=== PATIENT | female | born 1985 | race Caucasian/White ===

== ENCOUNTER 2017-11-19 07:48 | Inpatient (IN) ==
[2017-11-19] MEDS ORDERED: Bisacodyl 10 MG Supp RECTAL PRN (16:28)
--- NOTE | 2017-11-19 16:39 | MR ---
EXAM DATE: 11/19/2017 4:31 PM EDT AGE/SEX: 31 years / Female INDICATIONS: . Back pain, abnormal CT. CLINICAL DATA: This is the patient's initial encounter. Patient reports that signs and symptoms have been present for 4 - 6 days and indicates a pain score of 8/10. MEDICAL/SURGICAL HISTORY: None. Cholecystectomy. COMPARISON: No prior exams available for comparison. TECHNIQUE: Multiplanar, multisequence MRI of the lumbar spine was performed without contrast. Patie nt was scanned in a sitting position; neutral, flexion, and extension scans were performed in the sa gittal plane. FINDINGS: Sagittal images demonstrate normal vertebral body alignment and curvature. No focal areas of marrow r eplacement are identified. The conus terminates normally. Axial images were performed from T12-L1 thr ough L5-S1.There is loss of disc height and marginal osteophyte formation at L5-S1. T12-L1: No significant abnormalities identified. L1-L2: No significant abnormalities identified. L2-L3: No significant abnormalities identified. L3-L4: No significant abnormalities identified. L4-L5: No significant abnormalities identified. L5-S1: There is mild annular bulge of the disc. There is no significant spinal canal stenosis. The n eural foramina are clear bilaterally. CONCLUSION: Degenerative disc disease L5-S1. No evidence of disc protrusion or spinal canal stenosis. Electronically signed by: Mark Young MD 11/19/2017 4:38 PM EDT
--- NOTE | 2017-11-19 16:44 | P.HP ---
History of Present Illness Service: [facility] hospitalist PO Primary Care Physician: No Primary Care Physician Chief Complaint: severe back pain ,fever History of Present Illness: 31-year-old white female who presented to [facility] for evaluation of low back pain and fever. Patient states that she has had low back pain for approximately one years time but in the last 2 days it has become progressively worse about an 8 out of 10 aggravated by moving, she is unable to get out of bed because of the pain. Patient for the last 2 days also has been running a temperature T-max approximately 102no associated cough sore throat no urine symptoms no nausea no vomiting. Patient did take some Tylenol or ibuprofen with poor results. Patient states that her back pain radiates to her sacral area but not down her legs there is no tingling or numbness no motor or sensory loss with good bladder control and bowel control. In the emergency room and [place], patient had lab work which showed a slight elevation in WBC count rest of lab was unremarkable blood cultures were ordered and sent as well as a urine culture patient had a CAT scan of her lumbar spine which showed severe degenerative disc disease with neuroforaminal stenosis. The ER was concerned about a possible epidural abscess and she was sent to [facility] to undergo an MRI and further evaluation. - Diagnosis (1) Lumbar back pain (2) Fever Inpatient Certification: I certify that the inpatient services were ordered in accordance with Medicare regulations governing the order. This includes certification that hospital inpatient services are reasonable and necessary and in the case of services not specified as inpatient-only under 42 CFR 419.22(n), that they are appropriately provided as inpatient services in accordance to with the 2-midnight benchmark under 43 CFR 412.3(e) Review of Systems All other systems reviewed negative except as stated in HPI PMFSH - History History Provided By: Patient - Medical History Medical History: Medical History (Last Reviewed 11/19/17 @ 16:26 by Colt Mansfield MD) Migraine - Surgical History Surgical History: Surgical History (Last Reviewed 11/19/17 @ 16:26 by Colt Mansfield MD) History of cholecystectomy History of dental surgery Hx of eye surgery - Tobacco History Second Hand Smoke Exposure: No Tobacco Use In Past 30 Days: Yes Smoking Status: Current every day smoker Tobacco Type: Cigarettes - Alcohol History How Often Do You Have a Drink Containing Alcohol: Never - Substance Use History Substance History: No History of Abuse Medications and Allergies Active Medications: Active Medications Al Hydroxide/Mg Hydroxide (Milk Of Magnesia Liq) 30 ml PO Q12H PRN PRN Reason: Mild Constipation Bisacodyl (Dulcolax Supp) 10 mg RECTAL DAILY PRN PRN Reason: SEVERE CONSITIPATION Hydromorphone HCl (Dilaudid Pf Inj) 0.5 mg IV.PUSH Q4H PRN PRN Reason: PAIN SCALE 6 TO 10 Lactulose (Lactulose Liq) 30 ml PO DAILY PRN PRN Reason: SEVERE CONSITIPATION Ondansetron HCl (Zofran Inj) 4 mg IV.PUSH Q6H PRN PRN Reason: NAUSEA OR VOMITING Senna/Docusate Sodium (Yaneli-Colace) 1 tab PO BID BALBIR Sennosides (Senokot) 17.2 mg PO Q12H PRN PRN Reason: Moderate Constipation Sodium Chloride (Ns Flush) 2 ml IV.FLUSH PRN PRN PRN Reason: FLUSH AFTER USING IV ACCESS Temazepam (Restoril) 15 mg PO HS PRN PRN Reason: INSOMNIA Allergies Allergy/AdvReac Type Severity Reaction Status Date / Time ketorolac [From Toradol] Allergy Shortness Verified 11/19/17 08:19 of Breath meperidine [From Demerol] Allergy Headache Verified 11/19/17 08:19 Home Medications Medication Instructions Recorded Confirmed Type No Known Home Medications 11/19/17 11/19/17 History Exam Vital signs: Vital Signs 11/19/17 14:45 Temperature 97.3 F L Blood Pressure 118/71 Pulse Oximetry 96 GENERAL: SKIN: Warm and dry. HEAD: Atraumatic. Normocephalic. EYES: Pupils equal and round. No scleral icterus. No injection or drainage. ENT: No nasal bleeding or discharge. Mucous membranes pink and moist. NECK: Trachea midline. No JVD. CARDIOVASCULAR: Regular rate and rhythm. RESPIRATORY: No accessory muscle use. Clear to auscultation. Breath sounds equal bilaterally. GASTROINTESTINAL: Abdomen soft, non-tender, nondistended. Hepatic and splenic margins not palpable. MUSCULOSKELETAL: Extremities without clubbing, cyanosis, or edema. No obvious deformities. NEUROLOGICAL: Awake and alert. No obvious cranial nerve deficits. Motor grossly within normal limits. Five out of 5 muscle strength in the arms and legs. Normal speech. Patient with severe pain on moving low back unable to roll over without pain. PSYCHIATRIC: Appropriate mood and affect; insight and judgment normal. Caprini VTE Risk Assessment Caprini VTE Risk Assessment: No/Low Risk (score <= 1) Caprini Risk Assessment Model: Point Value = 1 Point Value = 2 Point Value = 3 Point Value = 5 Age 41-60 Minor surgery BMI > 25 kg/m2 Swollen legs Varicose veins or History of unexplained or recurrent spontaneous Oral contraceptives or hormone replacement Sepsis (< 1 month) Serious lung disease, including pneumonia (< 1 month) Abnormal pulmonary function Acute myocardial infarction Congestive heart failure (< 1 month) History of inflammatory bowel disease Medical patient at bed rest Age 61-74 Arthroscopic surgery Major open surgery (> 45 min) Laparoscopic surgery (> 45 min) Malignancy Confined to bed (> 72 hours) Immobilizing plaster cast Central venous access Age >= 75 History of VTE Family history of VTE Factor V Leiden Prothrombin [id number] Lupus anticoagulant Anticardiolipin antibodies Elevated serum homocysteine Heparin-induced thrombocytopenia Other congenital or acquired thrombophilia Stroke (< 1 month) Elective arthroplasty Hip, pelvis, or leg fracture Acute spinal cord injury (< 1 month) Prophylaxis Regimen: Total Risk Factor Score Risk Level Prophylaxis Regimen 0-1 Low Early ambulation 2 Moderate Order ONE of the following: *Sequential Compression Device (SCD) *Heparin 5000 units SQ BID 3-4 Higher Order ONE of the following medications: *Heparin 5000 units SQ TID *Enoxaparin/Lovenox 40 mg SQ daily (WT < 150 kg, CrCl > 30 mL/min) *Enoxaparin/Lovenox 30 mg SQ daily (WT < 150 kg, CrCl > 10-29 mL/min) *Enoxaparin/Lovenox 30 mg SQ BID (WT < 150 kg, CrCl > 30 mL/min) AND/OR *Sequential Compression Device (SCD) 5 or more Highest Order ONE of the following medications: *Heparin 5000 units SQ TID (Preferred with Epidurals) *Enoxaparin/Lovenox 40 mg SQ daily (WT < 150 kg, CrCl > 30 mL/min) *Enoxaparin/Lovenox 30 mg SQ daily (WT < 150 kg, CrCl > 10-29 mL/min) *Enoxaparin/Lovenox 30 mg SQ BID (WT < 150 kg, CrCl > 30 mL/min) AND *Sequential Compression Device (SCD) Assessment and Plan - Assessment (1) Lumbar back pain Code(s): M54.5 - Low back pain Status: Acute Plan: Will get MRI lumbar and sacrum for further evaluation may need to consult neurosurgery continue pain medication hydromorph and zofran will add flexeril (2) Fever Code(s): R50.9 - Fever, unspecified Status: Acute Plan: blood and urine cultures ordered from [place] will follow cbc use tylenol for now - Plan further plan as case develops Code Status: full Discussed Condition With: patient (2) Fever Qualifiers: Fever type: unspecified Qualified Code(s): R50.9 - Fever, unspecified
[2017-11-19] MEDS ORDERED: Acetaminophen 325 MG Tablet PO PRN (17:04)
[2017-11-19] MEDS: HYDROmorphone PF Inj 1 MG/ML Ampul IV.PUSH PRN ×2 (17:14→21:26)
--- NOTE | 2017-11-19 17:38 | MR ---
EXAM DATE: 11/19/2017 4:50 PM EDT AGE/SEX: 31 years / Female INDICATIONS: Pain. Low back pain with left radiculopathy. CLINICAL DATA: This is the patient's initial encounter. Patient reports that signs and symptoms have been present for > 1 year and indicates a pain score of 5/10. MEDICAL/SURGICAL HISTORY: . Cholecystectomy. COMPARISON: No prior exams available for comparison. TECHNIQUE: Multiplanar multisequence MRI examination of the sacrum/coccyx was performed. FINDINGS: Bone/Cartilage: Bone marrow signal is homogeneous. Articular cartilage signal is within normal limit s. Muscles/Tendons: All of the visualized muscles and tendons are intact. Miscellaneous: Neurovascular structures are within normal limits. CONCLUSION: Negative sacral MRI examination. Electronically signed by: Skip Del Valle MD 11/19/2017 5:37 PM EDT
[2017-11-19] MEDS: Senna/Docusate Sodium 8.6/50 MG Tablet PO SCH (21:20)
[2017-11-19] MEDS: LORazepam 1 MG Tablet PO PRN (23:08)
--- NOTE | 2017-11-19 23:08 | P.PNADD ---
Addendum to Inpatient Note Reason for Addendum: Additional Documentation Additional information: Patient on exam has scratch flynn on arms and some wounds to arm ,patient states from her stratching when she gets nervous and from popping blisters , also told me she was in hospital in past for ?sepsis and ?meningitis but did not really know what happened. MRI of lumbar showed djd disc degeneration no significant stenosis and patient continues to complain of pain have added tramdol and ativan,may need neurosurgical consult.
[2017-11-20] MEDS: HYDROmorphone PF Inj 1 MG/ML Ampul IV.PUSH PRN ×6 (01:26→23:13)
[2017-11-20 06:58] LABS: Baso % (Auto) 0.1 % (0.0-2.0); Eos % (Auto) 0.2 % (0.0-4.0); Hematocrit 35.2 % (35.0-46.0); Hemoglobin 11.7 gm/dL (11.6-15.3); Lymph # (Auto) 2.2 th/mm3 (1.0-4.8); Lymph % (Auto) 17.7 % (9.0-44.0); Mean Corpuscular HGB Conc 33.3 % (32.0-36.0); Mean Corpuscular Hemoglobin 26.2 pg (27.0-34.0); Mean Corpuscular Volume 78.7 fL (80.0-100.0); Mean Platelet Volume 7.7 fL (7.0-11.0); Mono # (Auto) 0.9 th/mm3 (0.0-0.9); Mono % (Auto) 7.1 % (0.0-8.0); Neut # (Auto) 9.2 th/mm3 (1.8-7.7); Neut % (Auto) 74.9 % (16.0-70.0); Platelet Count 268 th/mm3 (150-450); Red Blood Count 4.47 mil/mm3 (4.00-5.30); Red Cell Distribution Width 14.5 % (11.6-17.2); White Blood Count 12.3 th/mm3 (4.0-11.0)
[2017-11-20 07:06] LABS: Chloride 104 meq/L (98-107); Potassium 4.1 meq/L (3.5-5.1); Sodium 140 meq/L (136-145)
[2017-11-20 07:09] LABS: Anion Gap 8 meq/L (5-15); Blood Urea Nitrogen 10 mg/dL (7-18); Calcium 8.9 mg/dL (8.5-10.1); Carbon Dioxide 27.6 meq/L (21.0-32.0); Glucose,Random 108 mg/dL (74-106)
[2017-11-20 07:13] LABS: Glomerular Filtration Rate Greater Than 89 mL/min (>89)
[2017-11-20] MEDS: LORazepam 1 MG Tablet PO PRN ×3 (07:47→23:13)
[2017-11-20] MEDS: Senna/Docusate Sodium 8.6/50 MG Tablet PO SCH ×2 (08:03→21:42)
--- NOTE | 2017-11-20 12:29 | P.PN ---
Subjective Interval history: Patient admitted with intractable back pain with inability to turn over without pain MRI lumbar and sacrum djd no significant stenosis will ask for neurosurgical evaluation and interventional radiology to see as well. Patient has had fever with slight elevation WBC count and has gram positive in pairs on blood culture will recheck and repeat u/c/s and ask ID to evaluate does have history of sepsis in past ,several healed scars arms ,patient states from her stratching self from nervous. Labs to recheck in am will consult ID Physical Exam Vital signs: Vital Signs 11/19/17 14:45 11/19/17 20:00 11/20/17 00:00 Temperature 97.3 F L 98.3 F 97.1 F L Pulse Rate 72 62 Respiratory Rate 20 20 Blood Pressure 118/71 105/59 L 121/65 Pulse Oximetry 96 97 96 11/20/17 07:47 11/20/17 07:52 11/20/17 11:20 Temperature 98 F 98.1 F Pulse Rate 57 L 99 H Respiratory Rate 16 20 20 Blood Pressure 109/68 107/60 Pulse Oximetry 98 97 Intake & Output 11/19/17 11/20/17 11/20/17 18:59 06:59 18:59 Intake Total 401 / 401 720 / 720 Balance 401 / 401 720 / 720 Weight 97.2 kg 97 kg Intake: Oral 401 / 401 720 / 720 Other: # Voids 1 3 Weight On Admission 97.2 kg Narrative: GENERAL: SKIN: Warm and dry. HEAD: Atraumatic. Normocephalic. EYES: Pupils equal and round. No scleral icterus. No injection or drainage. ENT: No nasal bleeding or discharge. Mucous membranes pink and moist. NECK: Trachea midline. No JVD. CARDIOVASCULAR: Regular rate and rhythm. RESPIRATORY: No accessory muscle use. Clear to auscultation. Breath sounds equal bilaterally. GASTROINTESTINAL: Abdomen soft, non-tender, nondistended. Hepatic and splenic margins not palpable. MUSCULOSKELETAL: Extremities without clubbing, cyanosis, or edema. No obvious deformities. Severe pain on any movement lumbar NEUROLOGICAL: Awake and alert. No obvious cranial nerve deficits. Motor grossly within normal limits. Five out of 5 muscle strength in the arms and legs. Normal speech. PSYCHIATRIC: Appropriate mood and affect; insight and judgment normal. Results - Labs CBC & Chem 7: 11/20/17 06:21 11/20/17 06:21 Laboratory Results - last 24 hr 11/20/17 11/20/17 06:21 06:21 CBC w Diff Auto diff final WBC 12.3 H RBC 4.47 Hgb 11.7 Hct 35.2 MCV 78.7 L MCH 26.2 L MCHC 33.3 RDW 14.5 Plt Count 268 MPV 7.7 Neut % (Auto) 74.9 H Lymph % (Auto) 17.7 [place] % (Auto) 7.1 Eos % (Auto) 0.2 Baso % (Auto) 0.1 Neut # (Auto) 9.2 H Lymph # (Auto) 2.2 [place] # (Auto) 0.9 Eos # (Auto) 0.0 Baso # (Auto) 0.0 WBC Differential . Differential Comment . Sodium 140 Potassium 4.1 Chloride 104 Carbon Dioxide 27.6 Anion Gap 8 BUN 10 Creatinine 0.51 Estimated GFR Greater than 89 Random Glucose 108 H Calcium 8.9 - Imaging Impressions Sacrum/Coccyx MRI 11/19/17 00:00 CONCLUSION: Negative sacral MRI examination. Lumbar Spine MRI 11/19/17 15:07 CONCLUSION: Degenerative disc disease L5-S1. No evidence of disc protrusion or spinal canal stenosis. Assessment and Plan - Assessment (1) Lumbar back pain Code(s): M54.5 - Low back pain Status: Acute Plan: MRI lumbar and sacrum djd no significant stenosis consult neurosurgery and interventional radiology continue pain medication hydromorph and zofran will add flexeril and added ultram (2) Fever Code(s): R50.9 - Fever, unspecified Status: Acute Plan: blood culture growing gram positive in chains ID pending will techeck blood c/s and urine was contaminated will recollect has WBC about same ,patient did state has hx of sepsis in past will get ID consult,so far no temp over 18 hours - Plan further plan as case develops (2) Fever Qualifiers: Fever type: unspecified Qualified Code(s): R50.9 - Fever, unspecified
--- NOTE | 2017-11-20 12:34 | P.PNADD ---
Addendum to Inpatient Note Reason for Addendum: Additional Documentation (will get one set blood culture start empiric zoysn)
[2017-11-20] MEDS ORDERED: Piperacil/Tazo 3.375 GM Premix 50 ML IV.SIG SCH (14:00)
[2017-11-20] MEDS ORDERED: Vancomycin Inj 1 GM/200 ML PIGGYBACK IV.SIG SCH (17:00)
--- NOTE | 2017-11-20 19:11 | P.CONID ---
History of Present Illness Service: Infectious Disease Consult date: 11/20/17 Requesting Physician: Colt Mansfield Reason for Consult: Bacteremia Primary Care Provider: No Primary Care Physician Chief Complaint: severe back pain ,fever History of Present Illness: patient says she had chronic back pain and h/o anxiety when she cuts herself says she had fever with chills a couple of days and then her back pain got lot worse so she came to the ER and was transferred to [facility] to get a MRI. MRI Lumbar spine and sacral area was normal. Patient has positive blood cultures and so the consult. She denies drug use but does say that in 2014 too she had bacteremia due to cutting herself and had to be treated with IV antibiotics for 12 weeks. She at that time was in [place]. Review of Systems Constitutional: Reports body ache(s), Reports chills, Reports fatigue, Reports fever(s), Reports malaise, Reports night sweats, Denies headache(s) Eyes: Denies blind spots, Denies blurry vision, Denies bulging eyes Ears, Nose, Mouth, and Throat: Reports mouth pain, Denies abnormal hearing, Denies bleeding gums, Denies bad breath, Denies change in voice, Denies nasal obstruction, Denies nasal trauma, Denies sinus pain Cardiovascular: Denies chest pain, Denies chest pain at rest, Denies chest pain with activity, Denies fainting, Denies fast heart rate, Denies leg swelling, Denies lightheadedness Respiratory: Denies change in phlegm color, Denies chest congestion, Denies cough, Denies coughing up blood, Denies shortness of breath with activity Gastrointestinal: Denies abdominal pain, Denies bloating, Denies change in bowel habits, Denies change in stools, Denies difficulty swallowing, Denies heartburn Genitourinary: Denies blood in urine, Denies difficulty urinating, Denies pelvic pain Musculoskeletal: Reports back pain, Reports body aches, Denies abnormal walking , Denies muscle cramps, Denies muscle weakness Skin/Breast: Reports other (Multiple skin scratch flynn & lesions on both forearms from cutting herself) Neurologic: Denies loss of vision, Denies memory loss, Denies tingling/numbness/ burning sensations Psychiatric: Reports anxiety, Reports behavioral changes, Reports depression, Reports panic attacks, Denies memory loss Endocrine: Denies cold intolerance, Denies excessive sweating, Denies flushing Hematologic/Lymphatic: Denies easy bleeding, Denies easy bruising Allergic/Immunologic: Denies hives PMFSH - History History Provided By: Patient - Medical History Medical History: Medical History (Last Updated 11/20/17 @ 19:02 by Felicia Najera MD) Bacteremia Migraine - Surgical History Surgical History: Surgical History (Last Reviewed 11/19/17 @ 16:26 by Colt Mansfield MD) History of cholecystectomy History of dental surgery Hx of eye surgery - Tobacco History Second Hand Smoke Exposure: No Tobacco Use In Past 30 Days: Yes Smoking Status: Current every day smoker Tobacco Type: Cigarettes - Alcohol History How Often Do You Have a Drink Containing Alcohol: Never - Substance Use History Substance History: No History of Abuse - Travel History History of Recent Travel: No Medications and Allergies Active Medications: Active Medications Acetaminophen (Tylenol) 650 mg PO Q6H PRN PRN Reason: FEVER Al Hydroxide/Mg Hydroxide (Milk Of Magnesia Liq) 30 ml PO Q12H PRN PRN Reason: Mild Constipation Bisacodyl (Dulcolax Supp) 10 mg RECTAL DAILY PRN PRN Reason: SEVERE CONSITIPATION Cyclobenzaprine HCl (Flexeril) 10 mg PO Q8H PRN PRN Reason: PAIN SCALE 6 TO 10 Last Admin: 11/20/17 18:00 Dose: 10 mg Hydromorphone HCl (Dilaudid Pf Inj) 0.5 mg IV.PUSH Q4H PRN PRN Reason: PAIN 6-10 Last Admin: 11/20/17 15:38 Dose: 0.5 mg Vancomycin/Sodium Chloride (Vancomycin Inj) 1 gm in 200 mls @ 200 mls/hr IV.SIG Q12H BALBIR Last Admin: 11/20/17 17:53 Dose: 200 mls/hr Ampicillin Sodium/Sulbactam (Sodium 3 gm/ Sodium Chloride) 100 mls @ 200 mls/ hr IV.SIG Q6H BALBIR Lactulose (Lactulose Liq) 30 ml PO DAILY PRN PRN Reason: SEVERE CONSITIPATION Lorazepam (Ativan) 1 mg PO Q8H PRN PRN Reason: ANXIETY Last Admin: 11/20/17 15:37 Dose: 1 mg Ondansetron HCl (Zofran Inj) 4 mg IV.PUSH Q6H PRN PRN Reason: NAUSEA OR VOMITING Last Admin: 11/19/17 17:15 Dose: 4 mg Senna/Docusate Sodium (Yaneli-Colace) 1 tab PO BID BALBIR Last Admin: 11/20/17 08:03 Dose: 1 tab Sennosides (Senokot) 17.2 mg PO Q12H PRN PRN Reason: Moderate Constipation Sodium Chloride (Ns Flush) 2 ml IV.FLUSH PRN PRN PRN Reason: FLUSH AFTER USING IV ACCESS Temazepam (Restoril) 15 mg PO HS PRN PRN Reason: INSOMNIA Tramadol HCl (Ultram) 50 mg PO QID PRN PRN Reason: BREAKTHROUGH PAIN Last Admin: 11/20/17 13:20 Dose: 50 mg Allergies Allergy/AdvReac Type Severity Reaction Status Date / Time ketorolac [From Toradol] Allergy Shortness Verified 11/19/17 08:19 of Breath meperidine [From Demerol] Allergy Headache Verified 11/19/17 08:19 Home Medications Medication Instructions Recorded Confirmed Type No Known Home Medications 11/19/17 11/19/17 History Exam Vital signs: Vital Signs 11/19/17 20:00 11/20/17 00:00 11/20/17 07:47 Temperature 98.3 F 97.1 F L Pulse Rate 72 62 Respiratory Rate 20 20 16 Blood Pressure 105/59 L 121/65 Pulse Oximetry 97 96 11/20/17 07:52 11/20/17 11:20 11/20/17 11:57 Temperature 98 F 98.1 F Pulse Rate 57 L 99 H Respiratory Rate 20 20 16 Blood Pressure 109/68 107/60 Pulse Oximetry 98 97 11/20/17 12:44 11/20/17 16:08 11/20/17 16:09 Temperature 98 F Pulse Rate 84 Respiratory Rate 16 16 20 Blood Pressure 110/70 Pulse Oximetry 97 Intake & Output 11/19/17 11/20/17 11/20/17 18:59 06:59 18:59 Intake Total 401 / 401 720 / 720 920 / 920 Balance 401 / 401 720 / 720 920 / 920 Weight 97.2 kg 97 kg Intake: IV 0 / 0 Zosyn 3.375 GM Premix 50 ML @ 0 / 0 100 mls/hr IV.SIG Q6H BALBIR Rx#: [id number] Oral 401 / 401 720 / 720 920 / 920 Other: # Voids 1 3 4 Date of Last Bowel Movement 11/20/17 Weight On Admission 97.2 kg - Constitutional moderate distress Comments: Crying and very anxious - Routine HEENT Exam Head: Present: normocephalic, atraumatic Eye: Present: EOMI. Absent: periorbital swelling, nystagmus ENT: Present: mucous membranes moist, nares patent - Routine Neck Exam Present: supple, full ROM. Absent: carotid bruit, thyromegaly - Routine Chest/Breast/Axilla Exam Chest wall: Absent: tenderness, mass - Routine Respiratory Exam Present: CTA bilaterally. Absent: accessory muscle use, rhonchi, wheezes - Routine Cardiovascular Exam Present: RRR, murmur, tachycardia - Routine Abdominal Exam Present: soft, normoactive bowel sounds. Absent: tenderness, distended, rigid, organomegaly - Routine Extremities Exam Present: pulses intact. Absent: clubbing, edema - Routine Skin Exam Present: scars, wounds Comments: On both forearms multiple scars and wounds to suggest "cutting" - Routine Neurological Exam Present: alert, oriented X3, moving all extremities, normal speech. Absent: tremors - Routine Psychiatric Exam Present: anxious, agitated. Absent: good insight, good judgment Results - Labs CBC & Chem 7: 11/20/17 06:21 11/20/17 06:21 Labs: Laboratory Results - last 24 hr 11/20/17 11/20/17 06:21 06:21 CBC w Diff Auto diff final WBC 12.3 H RBC 4.47 Hgb 11.7 Hct 35.2 MCV 78.7 L MCH 26.2 L MCHC 33.3 RDW 14.5 Plt Count 268 MPV 7.7 Neut % (Auto) 74.9 H Lymph % (Auto) 17.7 [place] % (Auto) 7.1 Eos % (Auto) 0.2 Baso % (Auto) 0.1 Neut # (Auto) 9.2 H Lymph # (Auto) 2.2 [place] # (Auto) 0.9 Eos # (Auto) 0.0 Baso # (Auto) 0.0 WBC Differential . Differential Comment . Sodium 140 Potassium 4.1 Chloride 104 Carbon Dioxide 27.6 Anion Gap 8 BUN 10 Creatinine 0.51 Estimated GFR Greater than 89 Random Glucose 108 H Calcium 8.9 Assessment and Plan (1) Gram positive septicemia Status: Acute Code(s): A41.89 - Other specified sepsis (2) Lumbar back pain Status: Acute Code(s): M54.5 - Low back pain (3) Fever Status: Acute Code(s): R50.9 - Fever, unspecified - Plan 1. Patient does have a high grade Gram positive bacteremia 2. Add Vancomycin 1 g q 12hrs - Consult pharmacy 3. Stop Zosyn 4. Start Unasyn 3 g IV q 6hrs 5. Check Echocardiogram - if Echo negative for Endocarditis- will need JODI. 6. Needs Psychiatric evaluation - with h/o cutting herself. 7. Neurosurgery evaluation (3) Fever Qualifiers: Fever type: due to other condition Qualified Code(s): R50.81 - Fever presenting with conditions classified elsewhere
[2017-11-20] MEDS ORDERED: Vancomycin Consult Pharmacy 1 EACH OTHER SCH (19:13)
[2017-11-20] MEDS: Ampicillin/Sulbactam Inj 3 GM in Sodium Chloride 0.9% Inj 100 ML IV.SIG SCH (21:41)
[2017-11-21] MEDS: Vancomycin Inj 1,250 MG in Sodium Chlor 0.9% Inj 250 ML IV.SIG SCH ×3 (00:39→18:03)
[2017-11-21] MEDS: Temazepam 15 MG Capsule PO PRN (01:59)
[2017-11-21] MEDS: Ampicillin/Sulbactam Inj 3 GM in Sodium Chloride 0.9% Inj 100 ML IV.SIG SCH ×4 (03:14→22:08)
[2017-11-21] MEDS: HYDROmorphone PF Inj 1 MG/ML Ampul IV.PUSH PRN ×3 (03:15→12:31)
[2017-11-21 06:22] LABS: Baso % (Auto) 0.1 % (0.0-2.0); Eos % (Auto) 0.2 % (0.0-4.0); Hematocrit 34.3 % (35.0-46.0); Hemoglobin 11.4 gm/dL (11.6-15.3); Lymph # (Auto) 3.1 th/mm3 (1.0-4.8); Lymph % (Auto) 24.5 % (9.0-44.0); Mean Corpuscular HGB Conc 33.1 % (32.0-36.0); Mean Corpuscular Hemoglobin 25.8 pg (27.0-34.0); Mean Corpuscular Volume 78.1 fL (80.0-100.0); Mean Platelet Volume 7.4 fL (7.0-11.0); Mono # (Auto) 1.1 th/mm3 (0.0-0.9); Mono % (Auto) 8.6 % (0.0-8.0); Neut # (Auto) 8.4 th/mm3 (1.8-7.7); Neut % (Auto) 66.6 % (16.0-70.0); Platelet Count 317 th/mm3 (150-450); Red Blood Count 4.39 mil/mm3 (4.00-5.30); Red Cell Distribution Width 14.6 % (11.6-17.2); White Blood Count 12.6 th/mm3 (4.0-11.0)
[2017-11-21 06:44] LABS: Albumin 2.5 g/dL (3.4-5.0); Anion Gap 10 meq/L (5-15); Blood Urea Nitrogen 8 mg/dL (7-18); Calcium 8.3 mg/dL (8.5-10.1); Carbon Dioxide 26.5 meq/L (21.0-32.0); Chloride 102 meq/L (98-107); Sodium 138 meq/L (136-145)
[2017-11-21 06:46] LABS: Alanine Aminotransferase 26 U/L (10-53); Aspartate Aminotransferase 10 U/L (15-37); Glomerular Filtration Rate Greater Than 89 mL/min (>89); Glucose,Random 90 mg/dL (74-106)
[2017-11-21 06:52] LABS: Alkaline Phosphatase 81 U/L (45-117); Total Protein 7.7 g/dL (6.4-8.2)
[2017-11-21 06:56] LABS: Potassium 2.9 meq/L (3.5-5.1)
[2017-11-21] MEDS ORDERED: Potassium Chloride 25 MEQ Effervescent Tablet PO ONE (08:00)
[2017-11-21] MEDS: Senna/Docusate Sodium 8.6/50 MG Tablet PO SCH ×2 (09:07→22:09)
[2017-11-21] MEDS: LORazepam 1 MG Tablet PO PRN ×2 (09:15→16:11)
--- NOTE | 2017-11-21 10:56 | P.PN ---
Subjective Interval history: appreciate Dr. Brandon input ,concern is her scratches which she now tells us are from self inflicting,to be none of them look to be draining but does have gm positive cocci growing in blood cultures and on checking history she had sepsis required 6 weeks of IV vancomycin in [place] in past ,2d echo was ordered will need JODI and also psychiatry consult ,bone scan in process ,potassium was low will give IV,patient with continued severe back pain neurosurgery is on consult as well and i did suggest interventional radiology see for possible injection for pain relief but with the infection would hold on that for now . I will start process to transfer to [facility]. Physical Exam Vital signs: Vital Signs 11/20/17 11:20 11/20/17 11:57 11/20/17 12:44 Temperature 98.1 F Pulse Rate 99 H Respiratory Rate 20 16 16 Blood Pressure 107/60 Pulse Oximetry 97 11/20/17 16:08 11/20/17 16:09 11/20/17 20:00 Temperature 98 F 98.0 F Pulse Rate 84 71 Respiratory Rate 16 20 18 Blood Pressure 110/70 132/62 Pulse Oximetry 97 94 L 11/21/17 00:00 11/21/17 08:00 Temperature 98.2 F 99.8 F H Pulse Rate 86 65 Respiratory Rate 20 16 Blood Pressure 116/61 122/76 Pulse Oximetry 96 98 Intake & Output 11/20/17 11/21/17 11/21/17 18:59 06:59 18:59 Intake Total 1120 / 1120 200.5 / 200.5 312 / 312 Balance 1120 / 1120 200.5 / 200.5 312 / 312 Intake: IV 200 / 200 200.5 / 200.5 312 / 312 Unasyn Inj 3 GM In NS Inj 100 200 / 200 ML @ 200 mls/hr IV.SIG Q6H [facility] Rx#:[id number] Zosyn 3.375 GM Premix 50 ML @ 0 / 0 100 mls/hr IV.SIG Q6H [facility] Rx#: [id number] Vancomycin Inj 1 gm In 200 ml @ 200 / 200 200 mls/hr IV.SIG Q12H [facility] Rx# :[id number] Vancomycin Inj 1,250 MG In NS 0.5 / 0.5 262 / 262 Inj 250 ML @ 250 mls/hr IV.SIG Q8H [facility] Rx#:[id number] Oral 920 / 920 Other: # Voids 4 Date of Last Bowel Movement 11/20/17 Narrative: GENERAL: SKIN: Warm and dry. multiple areas of cut wounds arms with scabs no active drainage appear healing HEAD: Normocephalic. EYES: No scleral icterus. No injection or drainage. NECK: Supple, trachea midline. No JVD or lymphadenopathy. CARDIOVASCULAR: Regular rate and rhythm without murmurs, gallops, or rubs. RESPIRATORY: Breath sounds equal bilaterally. No accessory muscle use. GASTROINTESTINAL: Abdomen soft, non-tender, nondistended. MUSCULOSKELETAL: No cyanosis, or edema. BACK: Severe back pain with any movement Results - Labs CBC & Chem 7: 11/21/17 05:20 11/21/17 05:20 Laboratory Results - last 24 hr 11/21/17 11/21/17 05:20 05:20 CBC w Diff Auto diff final WBC 12.6 H RBC 4.39 Hgb 11.4 L Hct 34.3 L MCV 78.1 L MCH 25.8 L MCHC 33.1 RDW 14.6 Plt Count 317 MPV 7.4 Neut % (Auto) 66.6 Lymph % (Auto) 24.5 [place] % (Auto) 8.6 H Eos % (Auto) 0.2 Baso % (Auto) 0.1 Neut # (Auto) 8.4 H Lymph # (Auto) 3.1 [place] # (Auto) 1.1 H Eos # (Auto) 0.0 Baso # (Auto) 0.0 WBC Differential . Differential Comment . Sodium 138 Potassium 2.9 L* D Chloride 102 Carbon Dioxide 26.5 Anion Gap 10 BUN 8 Creatinine 0.54 Estimated GFR Greater than 89 Random Glucose 90 Calcium 8.3 L Total Bilirubin 0.5 AST 10 L ALT 26 Alkaline Phosphatase 81 Total Protein 7.7 Albumin 2.5 L Microbiology 11/20/17 12:53 Blood - Other Anaerobic Blood Culture - Preliminary gram positive cocci Assessment and Plan - Assessment (1) Lumbar back pain Code(s): M54.5 - Low back pain Status: Acute Plan: MRI lumbar and sacrum djd no significant stenosis consult neurosurgery and interventional radiology continue pain medication hydromorph and zofran will add flexeril and added ultram for now will hold interventional as under work up for sepsis,r/o endocarditis (2) Fever Code(s): R50.9 - Fever, unspecified Status: Acute Plan: blood culture growing gram positive in chains ID pending will techeck blood c/s and urine was contaminated will recollect has WBC about same ,patient did state has hx of sepsis in past will get ID consult,so far no temp over 18 hours but continues to be in diffuse pain bone scan ordered repeat blood cultures ID wants psy consult due to cutting history and will need JODI will transfer to [facility] for further evaluation. - Plan further plan as case develops (2) Fever Qualifiers: Fever type: due to other condition Qualified Code(s): R50.81 - Fever presenting with conditions classified elsewhere
[2017-11-21] MEDS ORDERED: Potassium Chlor 20 mEq Premix 20 MEQ/100 ML PIGGYBACK IV.SIG ONE (11:00)
--- NOTE | 2017-11-21 14:31 | NM ---
EXAM DATE: 11/21/2017 1:41 PM EDT AGE/SEX: 31 years / Female INDICATIONS: Low back pain. CLINICAL DATA: This is the patient's initial encounter. Patient reports that signs and symptoms have been present for 2 days and indicates a pain score of 8/10. MEDICAL/SURGICAL HISTORY: None. Cholecystectomy. COMPARISON: [facility], MR LUMBAR SPINE W/O CONTRAST, 11/19/2017. . TECHNIQUE: Three-phase bone scanning of the Low back. was performed. No correlative bone scan available for comparison. DOSE: 30.2 mCi Tc99m MDP IV FINDINGS: There is significant delayed tracer uptake at the lumbosacral junction consistent with known severe d isc degeneration at L5-S1. Discitis in this case cannot be excluded. The bone scan is elsewhere focally unremarkable. CONCLUSION: 1. Moderate uptake at the lumbosacral junction. 2. Discitis should be considered in the appropriate clinical situation Electronically signed by: Skip Martinez MD 11/21/2017 2:29 PM EDT
[2017-11-21 15:52] LABS: Activated Partial Thrombo Time 27.5 sec (24.3-30.1); INR 1.1 Ratio; Prothrombin Time 10.9 sec (9.8-11.6)
[2017-11-21] MEDS ORDERED: HYDROmorphone PF Inj 1 MG/ML Ampul IV.PUSH PRN (16:59)
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
[2017-11-21] MEDS: HYDROmorphone PF Inj 2 MG/ML Vial IV.PUSH PRN ×2 (18:02→22:03)
[2017-11-22] MEDS: HYDROmorphone PF Inj 2 MG/ML Vial IV.PUSH PRN ×5 (01:55→21:24)
[2017-11-22] MEDS: Vancomycin Inj 1,250 MG in Sodium Chlor 0.9% Inj 250 ML IV.SIG SCH ×2 (01:56→22:00)
[2017-11-22] MEDS: Ampicillin/Sulbactam Inj 3 GM in Sodium Chloride 0.9% Inj 100 ML IV.SIG SCH ×4 (03:52→21:26)
[2017-11-22 07:36] LABS: Baso % (Auto) 0.3 % (0.0-2.0); Eos % (Auto) 0.3 % (0.0-4.0); Hematocrit 32.9 % (35.0-46.0); Hemoglobin 10.8 gm/dL (11.6-15.3); Lymph # (Auto) 2.6 th/mm3 (1.0-4.8); Lymph % (Auto) 25.1 % (9.0-44.0); Mean Corpuscular Hemoglobin 25.2 pg (27.0-34.0); Mean Corpuscular Volume 76.3 fL (80.0-100.0); Mono % (Auto) 9.3 % (0.0-8.0); Neut # (Auto) 6.7 th/mm3 (1.8-7.7); Platelet Count 332 th/mm3 (150-450); Red Blood Count 4.31 mil/mm3 (4.00-5.30); Red Cell Distribution Width 15.6 % (11.6-17.2); White Blood Count 10.3 th/mm3 (4.0-11.0)
[2017-11-22 08:03] LABS: Albumin 2.4 g/dL (3.4-5.0); Anion Gap 10 meq/L (5-15); Aspartate Aminotransferase 9 U/L (15-37); Blood Urea Nitrogen 5 mg/dL (7-18); Calcium 8.8 mg/dL (8.5-10.1); Carbon Dioxide 25.8 meq/L (21.0-32.0); Chloride 105 meq/L (98-107); Glomerular Filtration Rate Greater Than 89 mL/min (>89); Glucose,Random 81 mg/dL (74-106); Potassium 3.3 meq/L (3.5-5.1); Sodium 141 meq/L (136-145)
[2017-11-22 08:04] LABS: Alanine Aminotransferase 20 U/L (10-53)
[2017-11-22 08:06] LABS: Alkaline Phosphatase 71 U/L (45-117); Total Protein 7.9 g/dL (6.4-8.2)
[2017-11-22] MEDS: Senna/Docusate Sodium 8.6/50 MG Tablet PO SCH ×2 (08:31→21:28)
[2017-11-22] MEDS ORDERED: Pharmacy Ordered Lab Info OTHER ONE (08:45)
--- NOTE | 2017-11-22 09:43 | P.PNIM ---
Subjective Interval history: Pt was transferred to [facility] from [place] for IR to evaluate for CT guided evaluation and possible aspiration of an area in the lumbar spine Pt was initially seen in [place] ED on 11/19/16 with worsening severe low back pain and fevers and was transferred to [facility] Blood cultures drawn in the ED on 11/19 with all 4 growing Staph aureus Pt was started on Zosyn and Vancomycin initially CT and MRI of lumbar spine and sacrum with noted degenerative disc disease L5- S1 but no evidence of disc protrusion or spinal canal stenosis. She was seen by ID and Zosyn was stopped and Unasyn was started on 11/20. Repeat blood cultures on 11/20 both also growing gram positive cocci. Bone Scan was performed on 11/21/17 which noted moderate uptake at the lumbosacral junction, discitis should be considered in the appropriate clinical situation. She was transferred to [facility] on 11/21 for IR to perform lumbar aspiration She is noted to have self mutilating behavior with cutting her arms with razor blades. She has multiple scars. She reports that the last time she this was around 2-3 months ago but she did have some scars noted in the antecubital fossas which she reports is secondary to abscesses and skin infections which occurred subsequent to her cutting. She has been seen by psychiatry as well. Neurosurgery has been consulted and pt also has a 2D echo ordered Physical Exam Vital signs: Vital Signs 11/21/17 12:00 11/21/17 16:46 11/21/17 20:00 Temperature 98.1 F 99.5 F 98.3 F Pulse Rate 85 75 79 Respiratory Rate 16 16 Blood Pressure 99/54 L 120/72 114/68 Pulse Oximetry 95 97 98 11/22/17 00:00 11/22/17 04:00 11/22/17 08:00 Temperature 98.4 F 98.3 F 99.6 F Pulse Rate 70 73 60 Respiratory Rate 17 16 20 Blood Pressure 119/68 115/61 127/84 Pulse Oximetry 97 99 98 Intake & Output 11/21/17 11/22/17 11/22/17 18:59 06:59 18:59 Intake Total 759.5 / 759.5 725.0 / 725.0 Balance 759.5 / 759.5 725.0 / 725.0 Intake: IV 759.5 / 759.5 725.0 / 725.0 Unasyn Inj 3 GM In NS Inj 100 100 / 100 200 / 200 ML @ 200 mls/hr IV.SIG Q6H [facility] Rx#:[id number] KCl 20 mEq Premix Inj 20 meq In 85 / 85 100 ml @ 50 mls/hr IV.SIG ONCE ONE Rx#:[id number] Vancomycin Inj 1,250 MG In NS 524.5 / 524.5 525.0 / 525.0 Inj 250 ML @ 250 mls/hr IV.SIG Q8H [facility] Rx#:[id number] Other: # Voids 2 3 Date of Last Bowel Movement 11/21/17 11/21/17 Narrative: GENERAL: NAD, AAOx3 SKIN: Warm and dry. multiple areas of cut wounds arms with scabs no active drainage appear healing CARDIO: Regular RESP: Breath sounds equal bilaterally. No accessory muscle use. ABD: +BS, soft, non-tender, nondistended. EXT: No cyanosis, or edema. BACK: Severe back pain with any movement Results - Labs CBC & Chem 7: 11/23/17 04:22 11/23/17 04:22 Laboratory Results - last 24 hr 11/21/17 11/22/17 11/22/17 15:25 06:54 06:54 WBC 10.3 RBC 4.31 Hgb 10.8 L Hct 32.9 L MCV 76.3 L MCH 25.2 L MCHC 33.0 RDW 15.6 Plt Count 332 MPV 7.0 Neut % (Auto) 65.0 Lymph % (Auto) 25.1 Drew % (Auto) 9.3 H Eos % (Auto) 0.3 Baso % (Auto) 0.3 Neut # (Auto) 6.7 Lymph # (Auto) 2.6 Drew # (Auto) 1.0 H Eos # (Auto) 0.0 Baso # (Auto) 0.0 WBC Differential . Differential Comment Auto diff final PT 10.9 INR 1.1 APTT 27.5 Sodium 141 Potassium 3.3 L Chloride 105 Carbon Dioxide 25.8 Anion Gap 10 BUN 5 L Creatinine 0.54 Estimated GFR Greater than 89 Random Glucose 81 Calcium 8.8 Total Bilirubin 0.4 AST 9 L ALT 20 Alkaline Phosphatase 71 Total Protein 7.9 Albumin 2.4 L Vancomycin Trough 11/22/17 08:20 WBC RBC Hgb Hct MCV MCH MCHC RDW Plt Count MPV Neut % (Auto) Lymph % (Auto) Drew % (Auto) Eos % (Auto) Baso % (Auto) Neut # (Auto) Lymph # (Auto) Drew # (Auto) Eos # (Auto) Baso # (Auto) WBC Differential Differential Comment PT INR APTT Sodium Potassium Chloride Carbon Dioxide Anion Gap BUN Creatinine Estimated GFR Random Glucose Calcium Total Bilirubin AST ALT Alkaline Phosphatase Total Protein Albumin Vancomycin Trough 13.3 H Microbiology 11/20/17 12:53 Blood - Other Aerobic Blood Culture - Preliminary gram positive cocci 11/20/17 12:53 Blood - Other Anaerobic Blood Culture - Preliminary gram positive cocci - Imaging Impressions Bone Scan Nuclear Medicine 11/21/17 00:00 CONCLUSION: 1. Moderate uptake at the lumbosacral junction. 2. Discitis should be considered in the appropriate clinical situation Sacrum/Coccyx MRI 11/19/17 00:00 CONCLUSION: Negative sacral MRI examination. Lumbar Spine MRI 11/19/17 15:07 CONCLUSION: Degenerative disc disease L5-S1. No evidence of disc protrusion or spinal canal stenosis. Bone Scan Nuclear Medicine 11/21/17 00:00 CONCLUSION: 1. Moderate uptake at the lumbosacral junction. 2. Discitis should be considered in the appropriate clinical situation Assessment and Plan - Plan Patient examined. Assessment and plan formulated with Adeola ACOSTA I agree with the above.
[2017-11-22] MEDS ORDERED: fentaNYL Citrate Inj 100 MCG/2 ML Ampul ONE ×2 (10:09)
--- NOTE | 2017-11-22 10:48 | P.RAD ---
Post Procedure Progress Note - Pre Procedure Diagnosis (1) Lumbar back pain (2) Gram positive septicemia - Procedure Information Procedure Date: 11/22/17 Supervising Radiologist: Crispin Joshua MD Estimated blood loss (mL): 0 Anesthesia: Local, Conscious Sedation - Plan of Activity Patient to Unit: [facility] Patient Condition: Good Additional Comments: L5/S1 disc aspiration completed. Samples sent to pathology. Pt tolerated the procedure well See PACS Report for procedural detail/treatment.
--- NOTE | 2017-11-22 15:53 | P.PNPSY ---
Subjective Remarks: Patient seen and examined. Chart reviewed. Case discussed with nursing staff. No behavioral issues noted overnight. On my examination today, patient reports some ongoing anxiety. Some of this anxiety is related to uncertainty regarding her underlying medical diagnosis. Denies any desire to self injure. Denies any suicidal ideation. We discuss safety planning, and I have counseled the patient to return to the ED if at any point after discharge she experiences urge to self injure or suicidal ideation or any other serious psychiatric symptoms. Although there is a family history of bipolar disorder, the patient denies any personal history of manic or hypomanic episodes. Complains of ongoing back pain. No other physical complaints. Vital Signs Temp Pulse Resp BP Pulse Ox 11/22/17 11:35 66 18 126/73 99 11/22/17 11:05 65 18 121/72 98 11/22/17 10:50 98.5 F 65 16 123/79 96 11/22/17 08:00 99.6 F 60 20 127/84 98 11/22/17 04:00 98.3 F 73 16 115/61 99 11/22/17 00:00 98.4 F 70 17 119/68 97 11/21/17 20:00 98.3 F 79 16 114/68 98 11/21/17 16:46 99.5 F 75 16 120/72 97 Intake and Output 11/22/17 11/22/17 11/22/17 06:59 14:59 22:59 Intake Total 362.5 / 362.5 340 / 340 Balance 362.5 / 362.5 340 / 340 Intake: IV 362.5 / 362.5 100 / 100 Unasyn Inj 3 GM In NS Inj 100 100 / 100 100 / 100 ML @ 200 mls/hr IV.SIG Q6H [facility] Rx#:[id number] Vancomycin Inj 1,250 MG In NS 262.5 / 262.5 Inj 250 ML @ 250 mls/hr IV.SIG Q8H [facility] Rx#:[id number] Oral 240 / 240 Other: # Voids 3 Date of Last Bowel Movement 11/21/17 Laboratory Results - last 24 hr 11/21/17 11/22/17 11/22/17 15:25 06:54 06:54 WBC 10.3 RBC 4.31 Hgb 10.8 L Hct 32.9 L MCV 76.3 L MCH 25.2 L MCHC 33.0 RDW 15.6 Plt Count 332 MPV 7.0 Neut % (Auto) 65.0 Lymph % (Auto) 25.1 [place] % (Auto) 9.3 H Eos % (Auto) 0.3 Baso % (Auto) 0.3 Neut # (Auto) 6.7 Lymph # (Auto) 2.6 [place] # (Auto) 1.0 H Eos # (Auto) 0.0 Baso # (Auto) 0.0 WBC Differential . Differential Comment Auto diff final PT 10.9 INR 1.1 APTT 27.5 Sodium 141 Potassium 3.3 L Chloride 105 Carbon Dioxide 25.8 Anion Gap 10 BUN 5 L Creatinine 0.54 Estimated GFR Greater than 89 Random Glucose 81 Calcium 8.8 Total Bilirubin 0.4 AST 9 L ALT 20 Alkaline Phosphatase 71 Total Protein 7.9 Albumin 2.4 L Vancomycin Trough 11/22/17 08:20 WBC RBC Hgb Hct MCV MCH MCHC RDW Plt Count MPV Neut % (Auto) Lymph % (Auto) [place] % (Auto) Eos % (Auto) Baso % (Auto) Neut # (Auto) Lymph # (Auto) [place] # (Auto) Eos # (Auto) Baso # (Auto) WBC Differential Differential Comment PT INR APTT Sodium Potassium Chloride Carbon Dioxide Anion Gap BUN Creatinine Estimated GFR Random Glucose Calcium Total Bilirubin AST ALT Alkaline Phosphatase Total Protein Albumin Vancomycin Trough 13.3 H Labs reviewed. Review of Systems All other systems reviewed negative except as stated in HPI Mental Status Examination Appearance: Appropriate Consciousness: Alert Orientation: x4 Motor Activity: Other (No motoric abnormalities noted) Speech: Unremarkable Language: Adequate Fund of Knowledge: Adequate Attention and Concentration: Adequate Memory: Unremarkable (Remains grossly intact on clinical exam) Mood: Anxious Affect: Anxious Thought Process & Associations: Intact, Logical, Goal directed, Linear Thought Content: Appropriate Hallucination Type: None Delusion Type: None Suicidal Ideation: No Suicidal Plan: No Suicidal Intention: No Homicidal Ideation: No Homicidal Plan: No Homicidal Intention: No Insight: Adequate Judgment: Adequate Assessment and Plan - Assessment (1) Anxiety disorder Code(s): F41.9 - Anxiety disorder, unspecified Status: Acute (2) Non-suicidal self-harm Code(s): R45.89 - Other symptoms and signs involving emotional state Status: Acute - Plan Plan: Patient agreeable to initiating scheduled psychotropic for management of anxiety today. Initiate Lexapro 5 mg daily with plans for slow titration to effect. Slow titration is important in anxiety disorders to avoid exacerbation of anxious symptoms. R/B/A for Lexapro discussed with patient. I have highlighted the potential risk for induction of viry in patients with underlying bipolar diathesis, although the patient does deny a history of viry or hypomania as noted above. Otherwise, recommendations as previously noted. I will plan to follow up no later than to assess tolerability of the Lexapro. Case discussed with RN. Justification for Continued Inpatient Stay: Per primary team. (1) Anxiety disorder Qualifiers: Anxiety disorder type: unspecified anxiety disorder Qualified Code(s): F41.9 - Anxiety disorder, unspecified
--- NOTE | 2017-11-22 16:06 | IR ---
EXAM DATE: 11/22/2017 11:12 AM EDT AGE/SEX: 31 years / Female INDICATIONS: Patient with low back pain for a year. CLINICAL DATA: This is the patient's initial encounter. Patient reports that signs and symptoms have been present for 4 - 6 days and indicates a pain score of 7/10. MEDICAL/SURGICAL HISTORY: migraine.smoker Cholecystectomy. eye surgery,dental surgery. COMPARISON: No prior exams available for comparison. FLUORO TIME (min): 4.9 IMAGE SERIES: 1 SEDATION TIME (min): 20 MEDICATION(S): 5 mg midazolam (Versed) IV 200 mcg Morphine PO DEVICE(s): 20 gauge 6 " spinal needle SPECIMEN(S): . . PROCEDURE: 1. Fluoroscopically guided needle biopsy. 2. Conscious sedation with continuous EKG and Oximetry monitoring. The risks, benefits and alternatives to the procedure were explained and verbal and written consent w as obtained. The site was prepped in sterile fashion. Full sterile technique was used, including cap, mask, steri le gloves and gown and a large sterile sheet. Hand hygiene and 2% chlorhexidine and/or betadine/alco hol prep was utilized per protocol for cutaneous antisepsis. The skin and subcutaneous tissues were infiltrated with local anesthetic solution. With fluoroscopic guidance the disc space at L5-S1 was accessed with a 20-gauge needle. Aspiration bi opsy was performed. Conscious sedation was performed with the prescribed dosages and duration as above in the presence of an independent trained radiology nurse to assist in the monitoring of the patient. EKG and oximetry remained stable throughout the procedure. CONCLUSION: 1. Uncomplicated needle biopsy of the L5-S1 disc space as above. Electronically signed by: Crispin Joshua MD 11/22/2017 4:04 PM EDT
--- NOTE | 2017-11-22 17:42 | P.CONNS ---
<Harley Durbin E - Last Filed: 11/22/17 17:56> History of Present Illness Service: Neurosurgery Consult date: 08/23/17 Requesting Physician: Colt Mansfield Reason for Consult: Intractable back pain Primary Care Provider: No Primary Care Physician Chief Complaint: severe back pain ,fever History of Present Illness: The patient endorses a history of low back pain for over a year without any problems. She reports that two days before presenting to [place] ED she started having severe back pain that was radiating down the left lower extremity. She also had fevers, with the highest being 102.7, the night before she went into the ED. She had no associated symptoms with the fever. The pain was so severe that she was not able to get out of bed. In the ED she had a slightly elevated WBC count and CT imaging demonstrated lumbar degenerative disc disease with neuroforaminal stenosis. Due to concerns for an epidural abscess the patient was transferred to [facility] for further imaging and evaluation. MRI imaging demonstrated degenerative disc disease at the L5-S1 level without evidence of disc protrusion or spinal canal stenosis. Blood cultures came back positive for gram positive cocci in pairs and clusters. She has subsequently been transferred to [facility] for evaluation by Neurosurgery and Interventional Radiology. The patient went to Interventional Radiology for aspiration of the L5-S1 disc. When seen the patient still has the lower back pain to the left side but she does not have any pain, numbness or tingling radiating down the lower extremities. She denies any saddle anaesthesia. She denies any bowel or bladder difficulty other than some urinary frequency. When seen the Hospitalist was with the patient. He reports that the patient developed a while back bacteremia secondary to an infected wound from cutting herself. It was his thought that she might have a seeded infection secondary to that episode. The patient does endorse a history of cutting and puncturing. She states that she also has had abscesses develop on the upper extremities that she would "pop." Review of Systems CONSTITUTIONAL: Fevers & chills, intentional weight loss over the past couple years. INTEGUMENTARY: Multiple healed & healing wounds secondary to cutting, puncture & "popping" abscesses. HEENT: Negative. NECK: Negative. RESPIRATORY: Negative. CARDIOVASCULAR: Negative. GASTROINTESTINAL: Right upper abdomen pain that started today. GENITOURINARY: Some urinary frequency. MUSCULOSKELETAL: Low back pain that has worsened and radiated down the left leg. HAEMATOLOGIC/LYMPHATIC: Negative. IMMUNOLOGIC: Negative. PSYCHIATRIC: Depression, anxiety, history of cutting & puncturing. NEUROLOGICAL: Migraines, low back pain radiating down left leg. PMFSH - History History Provided By: Patient - Medical History Medical History: Medical History (Last Updated 11/22/17 @ 17:37 by SUNSHINE Medel) Anxiety Bacteremia Onset Date: ~2013 Depression Migraine - Surgical History Surgical History: Surgical History (Last Reviewed 11/22/17 @ 17:37 by SUNSHINE Medel) History of cholecystectomy History of dental surgery Hx of eye surgery - Tobacco History Tobacco Use In Past 30 Days: Yes - Travel History Recent Travel in the [place] Within the Last 8 Weeks: No Recent Travel Out of the Country Within the Last 8 Weeks: No - Immunization History Tetanus Immunization: >5 Years Hx Influenza Vaccine This Season: No Medications and Allergies Allergies Allergy/AdvReac Type Severity Reaction Status Date / Time ketorolac [From Toradol] Allergy Shortness Verified 11/19/17 08:19 of Breath meperidine [From Demerol] Allergy Headache Verified 11/19/17 08:19 Home Medications Medication Instructions Recorded Confirmed Type diphenhydramine HCl [Benadryl] 50 mg PO HS PRN 11/21/17 11/21/17 History ibuprofen [Advil Liqui-Gel] 600 mg PO TID PRN 11/21/17 11/21/17 History Active Medications: Active Medications Acetaminophen (Tylenol) 650 mg PO Q6H PRN PRN Reason: FEVER Hydrocodone Bitart/Acetaminophen (Bath 5/325) 1 tab PO Q6H PRN PRN Reason: pain 1-5 Al Hydroxide/Mg Hydroxide (Milk Of Magnesia Liq) 30 ml PO Q12H PRN PRN Reason: Mild Constipation Bisacodyl (Dulcolax Supp) 10 mg RECTAL DAILY PRN PRN Reason: SEVERE CONSITIPATION Cyclobenzaprine HCl (Flexeril) 10 mg PO Q8H PRN PRN Reason: PAIN SCALE 6 TO 10 Last Admin: 11/22/17 08:31 Dose: 10 mg Escitalopram Oxalate (Lexapro) 5 mg PO DAILY [facility] Hydromorphone HCl (Dilaudid Pf Inj) 0.5 mg IV.PUSH Q4H PRN PRN Reason: PRN PAIN 6 TO 10 Last Admin: 11/22/17 12:48 Dose: 0.5 mg Ampicillin Sodium/Sulbactam (Sodium 3 gm/ Sodium Chloride) 100 mls @ 200 mls/ hr IV.SIG Q6H ON LICENSE OF [facility] Last Infusion: 11/22/17 16:24 Dose: Infused Pharmacy Profile Note (Vancomycin Consult Pharmacy) 0 mls @ 0 mls/hr OTHER UNSCH ON LICENSE OF [facility] Vancomycin HCl 1,400 mg/ (Sodium Chloride) 514 mls @ 250 mls/hr IV.SIG Q8H ON LICENSE OF [facility] Lactulose (Lactulose Liq) 30 ml PO DAILY PRN PRN Reason: SEVERE CONSITIPATION Lorazepam (Ativan) 1 mg PO Q8H PRN PRN Reason: ANXIETY Last Admin: 11/21/17 16:11 Dose: 1 mg Miscellaneous Information ([facility] Ordered Lab Info) 0 each OTHER ONCE ONE Stop: 11/23/17 08:46 Miscellaneous Information ([facility] Nursing Information) 1 each OTHER UNSCH PRN PRN Reason: SEE LABEL COMMENTS Stop: 11/23/17 11:44 Ondansetron HCl (Zofran Inj) 4 mg IV.PUSH Q6H PRN PRN Reason: NAUSEA OR VOMITING Last Admin: 11/21/17 11:43 Dose: 4 mg Ondansetron HCl (Zofran Odt) 4 mg PO Q4H PRN PRN Reason: nausea/vomiting Senna/Docusate Sodium (Yaneli-Colace) 1 tab PO BID ON LICENSE OF [facility] Last Admin: 11/22/17 08:31 Dose: 1 tab Sennosides (Senokot) 17.2 mg PO Q12H PRN PRN Reason: Moderate Constipation Sodium Chloride (Ns Flush) 2 ml IV.FLUSH PRN PRN PRN Reason: FLUSH AFTER USING IV ACCESS Temazepam (Restoril) 15 mg PO HS PRN PRN Reason: INSOMNIA Last Admin: 11/21/17 01:59 Dose: 15 mg Exam Vital signs: Vital Signs 11/21/17 20:00 11/22/17 00:00 11/22/17 04:00 Temperature 98.3 F 98.4 F 98.3 F Pulse Rate 79 70 73 Respiratory Rate 16 17 16 Blood Pressure 114/68 119/68 115/61 Pulse Oximetry 98 97 99 11/22/17 08:00 11/22/17 10:50 11/22/17 11:05 Temperature 99.6 F 98.5 F Pulse Rate 60 65 65 Respiratory Rate 20 16 18 Blood Pressure 127/84 123/79 121/72 Pulse Oximetry 98 96 98 11/22/17 11:35 11/22/17 16:00 Temperature 99.7 F H Pulse Rate 66 70 Respiratory Rate 18 18 Blood Pressure 126/73 130/82 Pulse Oximetry 99 98 Intake & Output 11/21/17 11/22/17 11/22/17 18:59 06:59 18:59 Intake Total 759.5 / 759.5 725.0 / 725.0 440 / 440 Balance 759.5 / 759.5 725.0 / 725.0 440 / 440 Intake: IV 759.5 / 759.5 725.0 / 725.0 200 / 200 Unasyn Inj 3 GM In NS Inj 100 100 / 100 200 / 200 200 / 200 ML @ 200 mls/hr IV.SIG Q6H [facility] Rx#:[id number] KCl 20 mEq Premix Inj 20 meq In 85 / 85 100 ml @ 50 mls/hr IV.SIG ONCE ONE Rx#:[id number] Vancomycin Inj 1,250 MG In NS 524.5 / 524.5 525.0 / 525.0 Inj 250 ML @ 250 mls/hr IV.SIG Q8H [facility] Rx#:[id number] Oral 240 / 240 Other: # Voids 2 3 Date of Last Bowel Movement 11/21/17 11/21/17 Narrative: GENERAL: This is a 31-year-old female who appears her stated age. She is in bed visiting with her family. She appears mildly uncomfortable at times, especially with movement. SKIN: Warm & dry. Multiple healed & healing wounds to the UEs. No evident rashes. HEENT: Normocephalic, atraumatic. PERRLA 3 mm brisk, EOMI. No otorrhea. Nares moist & pink, no rhinorrhea. MMM & pink, uvula midline, airway patent, tongue midline to protrusion. NECK: Midline cervical spine NTTP. Neck supple. No JVD. Trachea midline. RESPIRATORY: CTAB w/o W/R/R, equal excursion, nonlaboured, on RA. CARDIOVASCULAR: S1S2 w/RRR w/o M/G/R, radial & pedal pulses 2+ bilaterally, no pedal edema. GASTROINTESTINAL: Obese, abdomen soft, moderately tender to the superior RUQ, no palpable masses or organomegaly, positive bowel sounds. GENITOURINARY: Normal external female genitalia. MUSCULOSKELETAL: CLEMENTE spontaneously & purposefully w/o difficulty. Extremities NTTP. Multiple wounds healed and in various stages of healing to the UEs. The thoracic spine is NTTP. The lumbar spine is minimally TTP to the superior spine but increases inferiorly. She is TTP across the lower back. The gluteal notch and lateral hips are NTTP. HAEMATOLOGIC/LYMPHATIC: No ecchymosis. No palpable lymph nodes. PSYCHIATRIC: The patient appears mildly anxious at times. She does have numerous healed cuts & puncture wounds to the upper extremities. NEUROLOGICAL: AAOx3. Speech clear & appropriate. Follows simple commands w/o difficulty. CN II through XII grossly intact. Sensation intact to light touch to all extremities. Motor strength is normal to all major flexion & extension muscle groups, to include the wrist flexors & extensors and the hand intrinsics. No Nawaf's sign bilaterally. No ankle clonus bilaterally. Neutral Babinski's bilaterally. Results - Laboratory Findings CBC and BMP: 11/22/17 06:54 11/22/17 06:54 Abnormal lab findings: Abnormal Labs 11/20/17 11/20/17 11/21/17 06:21 06:21 05:20 WBC 12.3 H Hgb Hct MCV 78.7 L MCH 26.2 L Neut % (Auto) 74.9 H [place] % (Auto) Neut # (Auto) 9.2 H [place] # (Auto) Potassium 2.9 L* D BUN Random Glucose 108 H Calcium 8.3 L AST 10 L Albumin 2.5 L Vancomycin Trough 11/21/17 11/22/17 11/22/17 05:20 06:54 06:54 WBC 12.6 H Hgb 11.4 L 10.8 L Hct 34.3 L 32.9 L MCV 78.1 L 76.3 L MCH 25.8 L 25.2 L Neut % (Auto) [place] % (Auto) 8.6 H 9.3 H Neut # (Auto) 8.4 H [place] # (Auto) 1.1 H 1.0 H Potassium 3.3 L BUN 5 L Random Glucose Calcium AST 9 L Albumin 2.4 L Vancomycin Trough 11/22/17 08:20 WBC Hgb Hct MCV MCH Neut % (Auto) [place] % (Auto) Neut # (Auto) [place] # (Auto) Potassium BUN Random Glucose Calcium AST Albumin Vancomycin Trough 13.3 H - Diagnostic Findings Additional findings: NM bone scan 3 phase : "CONCLUSION: 1. Moderate uptake at the lumbosacral junction. 2. Discitis should be considered in the appropriate clinical situation Electronically signed by: Skip Martinez MD 11/21/2017 2:29 PM EDT ' MRI lumbar spine w/o contrast : "CONCLUSION: Degenerative disc disease L5-S1. No evidence of disc protrusion or spinal canal stenosis. Electronically signed by: Mark Young MD 11/19/2017 4:38 PM EDT" MRI sacrum/coccyx w/o contrast : "CONCLUSION: Negative sacral MRI examination. Electronically signed by: Skip Del Valle MD 11/19/2017 5:37 PM EDT" Assessment and Plan - Assessment (1) Lumbar back pain Code(s): M54.5 - Low back pain Status: Acute (2) Fever Code(s): R50.9 - Fever, unspecified Status: Acute (3) Gram positive septicemia Code(s): A41.89 - Other specified sepsis Status: Acute - Plan Impression: The patient is doing fairly well. She continues to have low back pain exacerbated w/movement. She has no sensorimotor deficits to the LEs upon evaluation. Past 24 hrs: 99.7 T max. Reviewed labs for today. Resolution of leukocytosis. Drop in haemoglobin level. Sodium 141. Improvement in hypokalemia. eGFR >89. Blood culture with Gram positive cocci. Fluid culture L5-S1 disc pending. Blood cultures x2 pending. Plan: Primary management per Hospitalist. Antibiotics per Infectious Disease. Neuro checks. Mobilise patient w/assistance as needed. <Umair Garcia - Last Filed: 11/22/17 22:16> History of Present Illness Primary Care Provider: No Primary Care Physician [facility] - Medical History Medical History: Medical History (Last Updated 11/22/17 @ 17:37 by SUNSHINE Medel) Anxiety Bacteremia Onset Date: ~2013 Depression Migraine - Surgical History Surgical History: Surgical History (Last Reviewed 11/22/17 @ 17:37 by SUNSHINE Medel) History of cholecystectomy History of dental surgery Hx of eye surgery Medications and Allergies Active Medications: Active Medications Acetaminophen (Tylenol) 650 mg PO Q6H PRN PRN Reason: FEVER Hydrocodone Bitart/Acetaminophen (Bath 5/325) 1 tab PO Q6H PRN PRN Reason: pain 1-5 Al Hydroxide/Mg Hydroxide (Milk Of Magnesia Liq) 30 ml PO Q12H PRN PRN Reason: Mild Constipation Bisacodyl (Dulcolax Supp) 10 mg RECTAL DAILY PRN PRN Reason: SEVERE CONSITIPATION Cyclobenzaprine HCl (Flexeril) 10 mg PO Q8H PRN PRN Reason: PAIN SCALE 6 TO 10 Last Admin: 11/22/17 17:04 Dose: 10 mg Escitalopram Oxalate (Lexapro) 5 mg PO DAILY ON LICENSE OF [facility] Hydromorphone HCl (Dilaudid Pf Inj) 0.5 mg IV.PUSH Q4H PRN PRN Reason: PRN PAIN 6 TO 10 Last Admin: 11/22/17 21:24 Dose: 0.5 mg Ampicillin Sodium/Sulbactam (Sodium 3 gm/ Sodium Chloride) 100 mls @ 200 mls/ hr IV.SIG Q6H ON LICENSE OF [facility] Last Infusion: 11/22/17 22:00 Dose: Infused Pharmacy Profile Note (Vancomycin Consult Pharmacy) 0 mls @ 0 mls/hr OTHER UNSCH ON LICENSE OF [facility] Vancomycin HCl 1,400 mg/ (Sodium Chloride) 514 mls @ 250 mls/hr IV.SIG Q8H ON LICENSE OF [facility] Last Infusion: 11/22/17 21:28 Dose: Infused Lactulose (Lactulose Liq) 30 ml PO DAILY PRN PRN Reason: SEVERE CONSITIPATION Lorazepam (Ativan) 1 mg PO Q8H PRN PRN Reason: ANXIETY Last Admin: 11/21/17 16:11 Dose: 1 mg Miscellaneous Information ([facility] Ordered Lab Info) 0 each OTHER ONCE ONE Stop: 11/23/17 08:46 Miscellaneous Information ([facility] Nursing Information) 1 each OTHER UNSCH PRN PRN Reason: SEE LABEL COMMENTS Stop: 11/23/17 11:44 Ondansetron HCl (Zofran Inj) 4 mg IV.PUSH Q6H PRN PRN Reason: NAUSEA OR VOMITING Last Admin: 11/21/17 11:43 Dose: 4 mg Ondansetron HCl (Zofran Odt) 4 mg PO Q4H PRN PRN Reason: nausea/vomiting Senna/Docusate Sodium (Yaneli-Colace) 1 tab PO BID [facility] Last Admin: 11/22/17 21:28 Dose: 1 tab Sennosides (Senokot) 17.2 mg PO Q12H PRN PRN Reason: Moderate Constipation Sodium Chloride (Ns Flush) 2 ml IV.FLUSH PRN PRN PRN Reason: FLUSH AFTER USING IV ACCESS Temazepam (Restoril) 15 mg PO HS PRN PRN Reason: INSOMNIA Last Admin: 11/22/17 21:28 Dose: 15 mg Exam Vital signs: Vital Signs 11/22/17 00:00 11/22/17 04:00 11/22/17 08:00 Temperature 98.4 F 98.3 F 99.6 F Pulse Rate 70 73 60 Respiratory Rate 17 16 20 Blood Pressure 119/68 115/61 127/84 Pulse Oximetry 97 99 98 11/22/17 10:50 11/22/17 11:05 11/22/17 11:35 Temperature 98.5 F Pulse Rate 65 65 66 Respiratory Rate 16 18 18 Blood Pressure 123/79 121/72 126/73 Pulse Oximetry 96 98 99 11/22/17 16:00 11/22/17 20:00 Temperature 99.7 F H 98.5 F Pulse Rate 70 101 H Respiratory Rate 18 17 Blood Pressure 130/82 116/60 Pulse Oximetry 98 96 Intake & Output 11/22/17 11/22/17 11/23/17 06:59 18:59 06:59 Intake Total 725.0 / 725.0 440 / 440 614 / 614 Balance 725.0 / 725.0 440 / 440 614 / 614 Intake: IV 725.0 / 725.0 200 / 200 614 / 614 Unasyn Inj 3 GM In NS Inj 100 200 / 200 200 / 200 100 / 100 ML @ 200 mls/hr IV.SIG Q6H ON LICENSE OF [facility] Rx#:[id number] Vancomycin Inj 1,250 MG In NS 525.0 / 525.0 Inj 250 ML @ 250 mls/hr IV.SIG Q8H [facility] Rx#:[id number] Vancomycin Inj 1,400 MG In NS 514 / 514 Inj 500 ML @ 250 mls/hr IV.SIG Q8H [facility] Rx#:[id number] Oral 240 / 240 Other: # Voids 3 3 Date of Last Bowel Movement 11/21/17 Results - Laboratory Findings CBC and BMP: 11/22/17 06:54 11/22/17 06:54 Abnormal lab findings: Abnormal Labs 11/20/17 11/20/17 11/21/17 06:21 06:21 05:20 WBC 12.3 H Hgb Hct MCV 78.7 L MCH 26.2 L Neut % (Auto) 74.9 H [place] % (Auto) Neut # (Auto) 9.2 H [place] # (Auto) Potassium 2.9 L* D BUN Random Glucose 108 H Calcium 8.3 L AST 10 L Albumin 2.5 L Vancomycin Trough 11/21/17 11/22/17 11/22/17 05:20 06:54 06:54 WBC 12.6 H Hgb 11.4 L 10.8 L Hct 34.3 L 32.9 L MCV 78.1 L 76.3 L MCH 25.8 L 25.2 L Neut % (Auto) [place] % (Auto) 8.6 H 9.3 H Neut # (Auto) 8.4 H [place] # (Auto) 1.1 H 1.0 H Potassium 3.3 L BUN 5 L Random Glucose Calcium AST 9 L Albumin 2.4 L Vancomycin Trough 11/22/17 08:20 WBC Hgb Hct MCV MCH Neut % (Auto) [place] % (Auto) Neut # (Auto) [place] # (Auto) Potassium BUN Random Glucose Calcium AST Albumin Vancomycin Trough 13.3 H Assessment and Plan - Attending Attestation The exam, history, and the medical decision-making described in the above note were completed with the assistance of the mid-level provider. I reviewed and agree with the findings presented. I attest that I had a [id number] encounter with the patient on the same day, and personally performed and documented my assessment and findings in the medical record. Patient seen and examined on 11/22/2017. History reviewed with patient. Symptoms history and imaging findings suspicious for L5-S1 discitis. Biopsy completed 11/22/2017 with results pending. <Harley Durbin E - Last Filed: 11/22/17 17:56> (2) Fever Qualifiers: Fever type: due to other condition Qualified Code(s): R50.81 - Fever presenting with conditions classified elsewhere
[2017-11-22] MEDS: Vancomycin Inj 1,400 MG in Sodium Chlor 0.9% Inj 500 ML IV.SIG SCH (18:47)
[2017-11-22] MEDS: Temazepam 15 MG Capsule PO PRN (21:28)
[2017-11-23] MEDS: HYDROmorphone PF Inj 2 MG/ML Vial IV.PUSH PRN ×4 (01:16→14:03)
[2017-11-23] MEDS: Vancomycin Inj 1,400 MG in Sodium Chlor 0.9% Inj 500 ML IV.SIG SCH ×3 (01:17→17:48)
[2017-11-23] MEDS: Ampicillin/Sulbactam Inj 3 GM in Sodium Chloride 0.9% Inj 100 ML IV.SIG SCH ×4 (03:39→21:17)
[2017-11-23 05:08] LABS: Anion Gap 9 meq/L (5-15); Blood Urea Nitrogen 5 mg/dL (7-18); Calcium 8.8 mg/dL (8.5-10.1); Carbon Dioxide 25.6 meq/L (21.0-32.0); Chloride 105 meq/L (98-107); Glomerular Filtration Rate Greater Than 89 mL/min (>89); Glucose,Random 87 mg/dL (74-106); Potassium 3.5 meq/L (3.5-5.1); Sodium 140 meq/L (136-145)
[2017-11-23 05:13] LABS: Baso % (Auto) 0.3 % (0.0-2.0); Eos % (Auto) 0.5 % (0.0-4.0); Hematocrit 32.4 % (35.0-46.0); Hemoglobin 10.9 gm/dL (11.6-15.3); Lymph # (Auto) 3.2 th/mm3 (1.0-4.8); Lymph % (Auto) 31.5 % (9.0-44.0); Mean Corpuscular HGB Conc 33.7 % (32.0-36.0); Mean Corpuscular Hemoglobin 25.6 pg (27.0-34.0); Mean Corpuscular Volume 75.9 fL (80.0-100.0); Mean Platelet Volume 6.9 fL (7.0-11.0); Mono # (Auto) 0.8 th/mm3 (0.0-0.9); Neut # (Auto) 6.1 th/mm3 (1.8-7.7); Neut % (Auto) 59.7 % (16.0-70.0); Platelet Count 349 th/mm3 (150-450); Red Blood Count 4.26 mil/mm3 (4.00-5.30); Red Cell Distribution Width 15.4 % (11.6-17.2); White Blood Count 10.2 th/mm3 (4.0-11.0)
[2017-11-23] MEDS ORDERED: Pharmacy Ordered Lab Info OTHER ONE (08:45)
[2017-11-23] MEDS: Escitalopram 10 MG Tablet PO SCH (09:15)
--- NOTE | 2017-11-23 11:24 | P.PNID ---
Subjective Remarks: 31/F patient says she had chronic back pain and h/o anxiety when she cuts herself says she had fever with chills a couple of days and then her back pain got lot worse so she came to the ER and was transferred to [facility] to get a MRI. MRI Lumbar spine and sacral area was normal. Patient has positive blood cultures and so the consult. She denies drug use but does say that in 2013 too she had bacteremia due to cutting herself and had to be treated with IV antibiotics for 12 weeks. She at that time was in [place]. Notes reviewed Transferred from [place] Back pain feels better Temps ok BC with MSSA Had aspiration L5-S1 yesterday MRI ok, but nuclear scan ?discitiis Antibiotics: Unasyn vancomycin Lines: PIV no evidence of infection Past Medical History: Bacteremia Migraine History of cholecystectomy History of dental surgery Hx of eye surgery Allergies/Adverse Reactions: Allergies ketorolac [From Toradol] Allergy (Verified 11/19/17 08:19) Shortness of Breath meperidine [From Demerol] Allergy (Verified 11/19/17 08:19) Headache Objective Vital Signs 11/22/17 11:35 11/22/17 16:00 11/22/17 20:00 Temperature 99.7 F H 98.5 F Pulse Rate 66 70 101 H Respiratory Rate 18 18 17 Blood Pressure 126/73 130/82 116/60 Pulse Oximetry 99 98 96 11/22/17 23:43 11/23/17 04:00 11/23/17 07:20 Temperature 99.3 F 98.4 F 98.8 F Pulse Rate 70 82 80 Respiratory Rate 16 16 14 Blood Pressure 108/73 120/75 121/75 Pulse Oximetry 99 98 97 Intake & Output 11/22/17 11/23/17 11/23/17 18:59 06:59 18:59 Intake Total 440 / 440 2148 / 2148 Balance 440 / 440 2148 / 2148 Intake: IV 200 / 200 1228 / 1228 Unasyn Inj 3 GM In NS Inj 100 200 / 200 200 / 200 ML @ 200 mls/hr IV.SIG Q6H BALBIR Rx#:[id number] Vancomycin Inj 1,400 MG In NS 1028 / 1028 Inj 500 ML @ 250 mls/hr IV.SIG Q8H BALBIR Rx#:[id number] Oral 240 / 240 920 / 920 Other: # Voids 3 3 Date of Last Bowel Movement 11/21/17 11/23/17 11/22/17 14:03 Blood - Peripheral Aerobic Blood Culture - Preliminary No growth in 1 day 11/22/17 14:03 Blood - Peripheral Anaerobic Blood Culture - Preliminary No growth in 1 day 11/22/17 14:10 Blood - Peripheral Aerobic Blood Culture - Preliminary No growth in 1 day 11/22/17 14:10 Blood - Peripheral Anaerobic Blood Culture - Preliminary No growth in 1 day 11/20/17 12:53 Blood - Other Aerobic Blood Culture - Final Staphylococcus aureus 11/20/17 12:53 Blood - Other Anaerobic Blood Culture - Final Staphylococcus aureus 11/20/17 01:20 Clean Catch Urine Urine Culture - Final No growth in 48 hours 11/22/17 10:36 Fluid - Other Gram Stain - Final 11/22/17 10:36 Fluid - Other Body Fluid Culture - Pending Lab - Hematology Results 11/22/17 11/23/17 11/23/17 06:54 04:22 04:22 WBC 10.3 10.2 RBC 4.31 4.26 Hgb 10.8 L 10.9 L Hct 32.9 L 32.4 L MCV 76.3 L 75.9 L MCH 25.2 L 25.6 L MCHC 33.0 33.7 RDW 15.6 15.4 Plt Count 332 349 MPV 7.0 6.9 L Neut % (Auto) 65.0 59.7 Lymph % (Auto) 25.1 31.5 [place] % (Auto) 9.3 H 8.0 Eos % (Auto) 0.3 0.5 Baso % (Auto) 0.3 0.3 Neut # (Auto) 6.7 6.1 Lymph # (Auto) 2.6 3.2 [place] # (Auto) 1.0 H 0.8 Eos # (Auto) 0.0 0.0 Baso # (Auto) 0.0 0.0 WBC Differential . . Differential Comment Auto diff final Auto diff final ESR 88 H Lab - Chemistry Results 11/22/17 11/23/17 06:54 04:22 Sodium 141 140 Potassium 3.3 L 3.5 Chloride 105 105 Carbon Dioxide 25.8 25.6 Anion Gap 10 9 BUN 5 L 5 L Creatinine 0.54 0.52 Estimated GFR Greater than 89 Greater than 89 Random Glucose 81 87 Calcium 8.8 8.8 Total Bilirubin 0.4 AST 9 L ALT 20 Alkaline Phosphatase 71 C-Reactive Protein 9.20 H Total Protein 7.9 Albumin 2.4 L Imaging: ITS Impressions Sacrum/Coccyx MRI 11/19/17 00:00 CONCLUSION: Negative sacral MRI examination. Lumbar Spine MRI 11/19/17 15:07 CONCLUSION: Degenerative disc disease L5-S1. No evidence of disc protrusion or spinal canal stenosis. Bone Scan Nuclear Medicine 11/21/17 00:00 CONCLUSION: 1. Moderate uptake at the lumbosacral junction. 2. Discitis should be considered in the appropriate clinical situation Needle Biopsy/Aspiration X-Ray 11/22/17 00:00 CONCLUSION: 1. Uncomplicated needle biopsy of the L5-S1 disc space as above. Physical Exam: GENERAL: Patient is a well-nourished, well-developed patient, awake and alert , not in respiratory distress. SKIN: Cool and dry. No generalized rash, no ecchymoses and no evidence of embolic lesions. Has multiple scars in BUE HEAD: Atraumatic. Normocephalic. No temporal wasting, or tenderness. EYES: [place] conjunctiva. No petechia or hemorrhage. Pupils equal, round and reactive to light. Extraocular movements full and intact. No scleral icterus. No injection or drainage. EARS, NOSE AND THROAT: Nose without bleeding or purulent nasal discharge. No sinus tenderness. Mucous membranes pink and moist. No oral lesions noted. NECK: Trachea midline. Supple and not tender, no meningeal signs CARDIOVASCULAR: Regular rate and rhythm. No murmurs, rubs or gallops heard RESPIRATORY: Clear to auscultation. Breath sounds equal bilaterally. No rales , wheezing or rhonchi ABDOMEN: Soft, non-tender, nondistended. Bowel sounds present and normoactive. No guarding. No rebound. No organomegaly. EXTREMITIES: No clubbing, cyanosis, or edema.No joint effusion, has good ROM. No calf tenderness. Well perfused and warm. NEUROLOGICAL: Awake and alert. Cranial nerves grossly intact. Motor grossly within normal limits. PSYCHIATRIC: Normal affect, calm and cooperative. LINE: No evidence of infection Assessment and Plan - Plan Impression MSSA sepsis on presentation Back pain, MRI shows degenerative disease, ?infection - has aspiration - C/S pending, but could be affected by current IV Abx Recommendation Change to Oxacillin Await echo Follow C/S Monitor progress Will need long course of IV Abx but definite course will depend on results of work-up Explained plan to the patient
[2017-11-23] MEDS: Senna/Docusate Sodium 8.6/50 MG Tablet PO SCH (12:22)
--- NOTE | 2017-11-23 12:54 | P.PNNS ---
Subjective Interval history: 11/23: low back pain better today, denies radiculopathy in legs <Iesha Bowers - Last Filed: 11/23/17 12:51> Physical Exam Vital signs: Vital Signs 11/22/17 16:00 11/22/17 20:00 11/22/17 23:43 Temperature 99.7 F H 98.5 F 99.3 F Pulse Rate 70 101 H 70 Respiratory Rate 18 17 16 Blood Pressure 130/82 116/60 108/73 Pulse Oximetry 98 96 99 11/23/17 04:00 11/23/17 07:20 11/23/17 11:41 Temperature 98.4 F 98.8 F 98.3 F Pulse Rate 82 80 66 Respiratory Rate 16 14 14 Blood Pressure 120/75 121/75 123/77 Pulse Oximetry 98 97 97 Intake & Output 11/22/17 11/23/17 11/23/17 18:59 06:59 18:59 Intake Total 440 / 440 2148 / 2148 600 / 600 Balance 440 / 440 2148 / 2148 600 / 600 Intake: IV 200 / 200 1228 / 1228 600 / 600 Unasyn Inj 3 GM In NS Inj 100 200 / 200 200 / 200 100 / 100 ML @ 200 mls/hr IV.SIG Q6H BALBIR Rx#:[id number] Vancomycin Inj 1,400 MG In NS 1028 / 1028 500 / 500 Inj 500 ML @ 250 mls/hr IV.SIG Q8H BALBIR Rx#:[id number] Oral 240 / 240 920 / 920 Other: # Voids 3 3 Date of Last Bowel Movement 11/21/17 11/23/17 Narrative: GENERAL: NAD, AAOx3 SKIN: Warm and dry. EXT: No cyanosis, or edema. Moves 5/5 bilateral iliopsoas, quadriceps, hamstrings, tibialis anterior, gastrocnemius, and EHL. Plantars flexors bilaterally. No ankle clonus. Sensory intact to light touch in lower extremities. <Iesha Bowers - Last Filed: 11/23/17 12:51> Vital signs: Vital Signs 11/22/17 20:00 11/22/17 23:43 11/23/17 04:00 Temperature 98.5 F 99.3 F 98.4 F Pulse Rate 101 H 70 82 Respiratory Rate 17 16 16 Blood Pressure 116/60 108/73 120/75 Pulse Oximetry 96 99 98 11/23/17 07:20 11/23/17 11:41 11/23/17 16:00 Temperature 98.8 F 98.3 F 98.1 F Pulse Rate 80 66 72 Respiratory Rate 14 14 14 Blood Pressure 121/75 123/77 111/61 Pulse Oximetry 97 97 98 11/23/17 17:54 Temperature 97.7 F Pulse Rate 68 Respiratory Rate 18 Blood Pressure 122/63 Pulse Oximetry 95 Intake & Output 11/23/17 11/23/17 11/24/17 06:59 18:59 06:59 Intake Total 2148 / 2148 800 / 800 Balance 2148 / 2148 800 / 800 Intake: IV 1228 / 1228 800 / 800 Ofirmev Inj 1,000 mg In 100 ml 100 / 100 @ 400 mls/hr IV.SIG Q6H BALBIR Rx# :[id number] Unasyn Inj 3 GM In NS Inj 100 200 / 200 200 / 200 ML @ 200 mls/hr IV.SIG Q6H BALBIR Rx#:[id number] Vancomycin Inj 1,400 MG In NS 1028 / 1028 500 / 500 Inj 500 ML @ 250 mls/hr IV.SIG Q8H BALBIR Rx#:[id number] Oral 920 / 920 Other: # Voids 3 Date of Last Bowel Movement 11/23/17 Narrative: The patient is alert, awake and oriented to time, place and person. Speech is fluent. Cranial nerve examination demonstrates the pupils to be equal, round, and reactive to light. Extra-ocular movements are intact with normal convergence. Facial motor and sensory function are normal and symmetrical. Gross hearing is intact, bilaterally, to finger rub. The uvula is midline and elevates symmetrically with the soft palate. Sternocleidomastoid and deltoid muscles have normal and symmetrical strength. Other cranial nerves are intact. Neck is soft and supple. Cervical spine has a full range of motion in anterior flexion, extension, lateral bending, and rotation without pain. There is no tenderness to palpation to the spinous processes or paraspinal muscles. Muscle testing reveals normal bulk and tone overall without rigidity, spasticity , fasciculations, or atrophy. Muscle strength is 5/5 in all muscle groups of both upper extremities including deltoid, biceps, triceps, brachioradialis, wrist extension and payable manager. In the lower extremities, strength is 5/5 in both iliopsoas, quadriceps, hamstrings, plantar flexion, dorsiflexion, and extensor hallucis longus. Sensory examination is intact to light touch and sharp/dull discrimination in both the upper and lower extremities, symmetrically. Deep tendon reflexes are 2+ and symmetrical in the biceps, triceps, and brachioradialis, bilaterally, in the upper extremities. In the lower extremities , the patellar and Achilles are 2+, bilaterally. There is a bilateral plantar flexion response. Hoffmanns sign is negative. There is no clonus or other abnormal reflexes noted. Cerebellar examination is intact to [id number] test, rapid rhythmic alternating motion. No dysmetria, dysdiadochokinesia, truncal ataxia, or tremor noted. Lungs: clear Heart: Regular rhythm and rate Skin: warm and dry <Conrad Mittal - Last Filed: 11/23/17 19:57> Assessment and Plan - Plan Impression: Lumbar pain without radiculopathy suspected discitis at L5-S1, s/p needle biopsy Plan: cont nonsurgical management Primary management per Hospitalist. Antibiotics per Infectious Disease. Neuro checks. Mobilize patient w/assistance as needed <Iesha Bowers - Last Filed: 11/23/17 12:51> - Plan Nonoperative treatment Neuro checks IV antibiotics Follow up cultures Pulmonary: aggressive pulmonary toilette, nasotracheal suction, and breathing treatments with nebulizers. Daily PT and OT Renal: Continue to monitor closely urine output, BUN and creatinine Endocrine: Continue to Monitor serial Acu checks and SSI as needed in detail ID continue to monitor for signs of infection Continue Protonix for stress ulcer prophylaxis Continue Castro hose and SCD's for DVT prophylaxis Further recommendations will be provided depending on the patient's clinical evaluation and follow up studies. The exam, history, and the medical decision-making described in the above note were completed with the assistance of the mid-level provider. I reviewed and agree with the findings presented. I attest that I had a [id number] encounter with the patient on the same day, and personally performed and documented my assessment and findings in the medical record. <Conrad Mittal - Last Filed: 11/23/17 19:57>
--- NOTE | 2017-11-23 14:34 | P.PNIM ---
Subjective Interval history: No new complaints. Pt does c/o vague pain at right rib cage which is worse with movement. Physical Exam Vital signs: Vital Signs 11/22/17 16:00 11/22/17 20:00 11/22/17 23:43 Temperature 99.7 F H 98.5 F 99.3 F Pulse Rate 70 101 H 70 Respiratory Rate 18 17 16 Blood Pressure 130/82 116/60 108/73 Pulse Oximetry 98 96 99 Narrative: GENERAL: NAD, AAOx3 SKIN: Warm and dry. multiple areas of cut wounds arms with scabs no active drainage appear healing CARDIO: Regular RESP: Breath sounds equal bilaterally. No accessory muscle use. ABD: +BS, soft, non-tender, nondistended. EXT: No cyanosis, or edema. Results - Labs CBC & Chem 7: 11/23/17 04:22 11/23/17 04:22 Laboratory Results - last 24 hr 11/23/17 11/23/17 11/23/17 04:22 04:22 04:22 WBC 10.2 RBC 4.26 Hgb 10.9 L Hct 32.4 L MCV 75.9 L MCH 25.6 L MCHC 33.7 RDW 15.4 Plt Count 349 MPV 6.9 L Neut % (Auto) 59.7 Lymph % (Auto) 31.5 [place] % (Auto) 8.0 Eos % (Auto) 0.5 Baso % (Auto) 0.3 Neut # (Auto) 6.1 Lymph # (Auto) 3.2 [place] # (Auto) 0.8 Eos # (Auto) 0.0 Baso # (Auto) 0.0 WBC Differential . Differential Comment Auto diff final ESR 88 H Sodium 140 Potassium 3.5 Chloride 105 Carbon Dioxide 25.6 Anion Gap 9 BUN 5 L Creatinine 0.52 Estimated GFR Greater than 89 Random Glucose 87 Calcium 8.8 C-Reactive Protein 9.20 H Vancomycin Trough 11/23/17 08:40 WBC RBC Hgb Hct MCV MCH MCHC RDW Plt Count MPV Neut % (Auto) Lymph % (Auto) [place] % (Auto) Eos % (Auto) Baso % (Auto) Neut # (Auto) Lymph # (Auto) [place] # (Auto) Eos # (Auto) Baso # (Auto) WBC Differential Differential Comment ESR Sodium Potassium Chloride Carbon Dioxide Anion Gap BUN Creatinine Estimated GFR Random Glucose Calcium C-Reactive Protein Vancomycin Trough 14.6 H Microbiology 11/22/17 14:03 Blood - Peripheral Aerobic Blood Culture - Preliminary No growth in 1 day 11/22/17 14:03 Blood - Peripheral Anaerobic Blood Culture - Preliminary No growth in 1 day 11/22/17 14:10 Blood - Peripheral Aerobic Blood Culture - Preliminary No growth in 1 day 11/22/17 14:10 Blood - Peripheral Anaerobic Blood Culture - Preliminary No growth in 1 day 11/20/17 12:53 Blood - Other Aerobic Blood Culture - Final Staphylococcus aureus 11/20/17 12:53 Blood - Other Anaerobic Blood Culture - Final Staphylococcus aureus 11/20/17 01:20 Clean Catch Urine Urine Culture - Final No growth in 48 hours 11/22/17 10:36 Fluid - Other Gram Stain - Final - Imaging Impressions Needle Biopsy/Aspiration X-Ray 11/22/17 00:00 CONCLUSION: 1. Uncomplicated needle biopsy of the L5-S1 disc space as above. Assessment and Plan - Assessment (1) Gram positive septicemia Code(s): A41.89 - Other specified sepsis Status: Acute Plan: Staph Aureus bacteremia Severe back pain, possible discitis - comgmt with Psychiatry, ID, Neurosurgery - Pt is a 31 y/o WF with hx of anxiety and self mutilating behavior. - Pt was initially seen in [place] ED on 11/19/16 with worsening severe low back pain and fevers and was transferred to [facility] [place] - Blood Cx (11/19) --> MSSA - Blood Cx (11/20) --> MSSA - Blood Cx (11/22) --> NGTD - Fluid Cx (11/22) from L5/S1 disc Bx - gram stain --> NO organisms - Culture (11/22) --> NGTD - Pt was started on Zosyn and Vancomycin initially - CT and MRI of lumbar spine and sacrum with noted degenerative disc disease L5- S1 but no evidence of disc protrusion or spinal canal stenosis. - She was seen by ID and Zosyn was stopped and Unasyn was started on 11/20. - Bone Scan 11/21/17 noted moderate uptake at the lumbosacral junction, discitis should be considered in the appropriate clinical situation. - She was transferred to [facility] on 11/21 for IR to perform lumbar aspiration - She is noted to have self mutilating behavior with cutting her arms with razor blades. She has multiple scars. She reports that the last time she this was around 2-3 months ago but she did have some scars noted in the antecubital fossas which she reports is secondary to abscesses and skin infections which occurred subsequent to her cutting. - awaiting Echocardiogram, may require JODI to r/o endocarditis - Unasyn (11/20 - present) - Vancomycin (11/21 - present) - norco prn - scheduled IV tylenol x 24 hours, K-thermia - Flexeril PRN - Supportive care - DVT prophylaxis Anxiety Self-mutilating behavior - Psychiatry following - Ativan PO PRN - Pt stared on lexapro - Pt will need to continue outpt counselling with [facility] Mental health following discharge (2) Fever Code(s): R50.9 - Fever, unspecified Status: Acute (3) Anxiety disorder Code(s): F41.9 - Anxiety disorder, unspecified Status: Acute (4) Deliberate self-cutting Code(s): Z72.89 - Other problems related to lifestyle Status: Acute (5) Lumbar back pain Code(s): M54.5 - Low back pain Status: Acute - Plan Patient examined. Assessment and plan formulated with Adeola Shelby PA-C. I agree with the above. (2) Fever Qualifiers: Fever type: due to other condition Qualified Code(s): R50.81 - Fever presenting with conditions classified elsewhere (3) Anxiety disorder Qualifiers: Anxiety disorder type: unspecified anxiety disorder Qualified Code(s): F41.9 - Anxiety disorder, unspecified
--- NOTE | 2017-11-23 15:37 | ECHRPT ---
Indication: sepsis. poss. endocarditis CONCLUSIONS The left ventricular systolic function is hyperdynamic with an estimated ejection fraction in the ra nge of 65- 70%. Normal left ventricular size. Wall thickness is normal. No regional wall motion abnormalities are present. Wiymi-[id number]-fbth mitral valve regurgitation. There is mild tricuspid valve regurgitation. The estimated pulmonary arterial pressure is 35.6 mmHg. BP: / HR: Rhythm: Sinus MEASUREMENTS (Male / Female) Normal Values Technical Quality:Excellent 2D ECHO LV Diastolic Diameter PLAX 5.0 cm 4.2 - 5.9 / 3.9 - 5.3 cm LV Systolic Diameter PLAX 3.2 cm IVS Diastolic Thickness 1.0 cm 0.6 - 1.0 / 0.6 - 0.9 cm LVPW Diastolic Thickness 1.0 cm 0.6 - 1.0 / 0.6 - 0.9 cm LV Relative Wall Thickness 0.4 RV Internal Dim ED PLAX 2.6 cm LVOT Diameter 2.0 cm LA Systolic Diameter LX 3.9 cm 3.0 - 4.0 / 2.7 - 3.8 cm LV Ejection Fraction MOD 4C 71.6 % LV Ejection Fraction 4C AL 72.9 % M-MODE Aortic Root Diameter MM 2.4 cm LA Systolic Diameter MM 3.4 cm LA Ao Ratio MM 1.4 DOPPLER AV Peak Velocity 137.0 cm/s AV Peak Gradient 7.5 mmHg LVOT Peak Velocity 109.0 cm/s LVOT Peak Gradient 4.8 mmHg AV Area Cont Eq pk 2.5 cm MV Area PHT 4.7 cm Mitral E Point Velocity 84.9 cm/s Mitral A Point Velocity 49.4 cm/s Mitral E to A Ratio 1.7 LV E' Lateral Velocity 14.1 cm/s Mitral E to LV E' Lateral Ratio 6.0 LV E' Septal Velocity 6.8 cm/s Mitral E to LV E' Septal Ratio 12.4 TR Peak Velocity 253.0 cm/s TR Peak Gradient 26.0 mmHg Right Atrial Pressure 10.0 mmHg Pulmonary Artery Systolic Pressu 35.6 mmHg Right Ventricular Systolic Press 35.6 mmHg PV Peak Velocity 95.0 cm/s PV Peak Gradient 3.6 mmHg FINDINGS LEFT VENTRICLE The left ventricular systolic function is hyperdynamic with an estimated ejection fraction in the ra nge of 65- 70%. Normal left ventricular size. Wall thickness is normal. No regional wall motion abnormalities are present. RIGHT VENTRICLE Normal right ventricular size and systolic function. LEFT ATRIUM The left atrial size is normal. RIGHT ATRIUM The right atrial size is normal. ATRIAL SEPTUM Normal atrial septal thickness without atrial level shunting by limited color doppler interrogation. AORTA The aortic root and proximal ascending aorta are normal in size on limited imaging. MITRAL VALVE Structurally normal mitral valve. [id number]-[id number] mitral valve regurgitation. AORTIC VALVE Trileaflet aortic valve. No aortic valve stenosis or regurgitation. TRICUSPID VALVE Structurally normal tricuspid valve. There is mild tricuspid valve regurgitation. The estimated pulmonary arterial pressure is 35.6 mmHg. PULMONARY VALVE No pulmonary valve regurgitation or stenosis. VESSELS The inferior vena cava is normal in size. PERICARDIUM No pericardial effusion. Portillo Leyva MD, FACC (Electronically Signed) Final Date:23 November 2017 15:37
[2017-11-23] MEDS: LORazepam 1 MG Tablet PO PRN (19:46)
[2017-11-23] MEDS ORDERED: HYDROmorphone PF Inj 2 MG/ML Vial IV.PUSH PRN (22:35)
[2017-11-23] MEDS: Temazepam 15 MG Capsule PO PRN (23:25)
[2017-11-24] MEDS: Vancomycin Inj 1,400 MG in Sodium Chlor 0.9% Inj 500 ML IV.SIG SCH (01:30)
[2017-11-24] MEDS: Ampicillin/Sulbactam Inj 3 GM in Sodium Chloride 0.9% Inj 100 ML IV.SIG SCH ×2 (04:19→09:56)
[2017-11-24 07:08] LABS: Glomerular Filtration Rate Greater Than 89 mL/min (>89)
[2017-11-24] MEDS: Senna/Docusate Sodium 8.6/50 MG Tablet PO SCH ×3 (08:08→22:32)
--- NOTE | 2017-11-24 08:13 | P.CONCA ---
<Eden Rey - Last Filed: 11/24/17 08:04> History of Present Illness Service: cardiology Consult date: 11/24/17 Reason for Consult: JODI reqested to r/o endocarditis Primary Care Provider: No Primary Care Physician Chief Complaint: severe back pain ,fever History of Present Illness: 31 yo female with anxiety and chronic low back pain presented to ED in [place] on 11/19/17 with progressively worsening low back pain and fever. She was ultimately transferred to [facility] for an IR aspiration of lumbar disc. Workup thus far has shown positive blood culture and a 2D echo demonstrating normal EF with mild mitral regurgitation and no vegetations. She does have a noted history of self-mutilation including cutting to her arms. We have been asked to see her to consider JODI to further explore possible endocarditis. She denies chest pain, sob or palpitations. Review of Systems All other systems reviewed negative except as stated in HPI PMFSH - History History Provided By: Patient - Medical History Medical History: Medical History (Last Reviewed 11/23/17 @ 09:19 by Bartolo Cuellar) Anxiety Bacteremia Onset Date: ~2013 Depression Migraine - Surgical History Surgical History: Surgical History (Last Reviewed 11/23/17 @ 09:19 by Bartolo Cuellar) History of cholecystectomy History of dental surgery Hx of eye surgery - Tobacco History Tobacco Use In Past 30 Days: Yes - Travel History Recent Travel in the [place] Within the Last 8 Weeks: No Recent Travel Out of the Country Within the Last 8 Weeks: No - Immunization History Tetanus Immunization: >5 Years Hx Influenza Vaccine This Season: No Medications and Allergies Allergies Allergy/AdvReac Type Severity Reaction Status Date / Time ketorolac [From Toradol] Allergy Shortness Verified 11/19/17 08:19 of Breath meperidine [From Demerol] Allergy Headache Verified 11/19/17 08:19 Home Medications Medication Instructions Recorded Confirmed Type diphenhydramine HCl [Benadryl] 50 mg PO HS PRN 11/21/17 11/21/17 History ibuprofen [Advil Liqui-Gel] 600 mg PO TID PRN 11/21/17 11/21/17 History Active Medications: Active Medications Acetaminophen (Tylenol) 650 mg PO Q6H PRN PRN Reason: FEVER Hydrocodone Bitart/Acetaminophen (I[place]hoe 5/325) 1 tab PO Q6H PRN PRN Reason: pain 1-5 Last Admin: 11/24/17 05:30 Dose: 1 tab Al Hydroxide/Mg Hydroxide (Milk Of Magnesia Liq) 30 ml PO Q12H PRN PRN Reason: Mild Constipation Bisacodyl (Dulcolax Supp) 10 mg RECTAL DAILY PRN PRN Reason: SEVERE CONSITIPATION Cyclobenzaprine HCl (Flexeril) 10 mg PO Q8H PRN PRN Reason: PAIN SCALE 6 TO 10 Last Admin: 11/24/17 03:58 Dose: 10 mg Escitalopram Oxalate (Lexapro) 5 mg PO DAILY [facility] Last Admin: 11/23/17 09:15 Dose: 5 mg Ampicillin Sodium/Sulbactam (Sodium 3 gm/ Sodium Chloride) 100 mls @ 200 mls/ hr IV.SIG Q6H [facility] Last Infusion: 11/24/17 04:49 Dose: Infused Pharmacy Profile Note (Vancomycin Consult Pharmacy) 0 mls @ 0 mls/hr OTHER UNSCH [facility] Vancomycin HCl 1,400 mg/ (Sodium Chloride) 514 mls @ 250 mls/hr IV.SIG Q8H [facility] Last Infusion: 11/24/17 03:34 Dose: 250 mls/hr Acetaminophen (Ofirmev Inj) 1,000 mg in 100 mls @ 400 mls/hr IV.SIG Q6H [facility] Stop: 11/24/17 09:14 Last Infusion: 11/24/17 04:05 Dose: Infused Lactulose (Lactulose Liq) 30 ml PO DAILY PRN PRN Reason: SEVERE CONSITIPATION Lorazepam (Ativan) 1 mg PO Q8H PRN PRN Reason: ANXIETY Last Admin: 11/23/17 19:46 Dose: 1 mg Ondansetron HCl (Zofran Inj) 4 mg IV.PUSH Q6H PRN PRN Reason: NAUSEA OR VOMITING Last Admin: 11/24/17 05:33 Dose: 4 mg Ondansetron HCl (Zofran Odt) 4 mg PO Q4H PRN PRN Reason: nausea/vomiting Senna/Docusate Sodium (Yaneli-Colace) 1 tab PO BID [facility] Last Admin: 11/23/17 12:22 Dose: Not Given Sennosides (Senokot) 17.2 mg PO Q12H PRN PRN Reason: Moderate Constipation Sodium Chloride (Ns Flush) 2 ml IV.FLUSH PRN PRN PRN Reason: FLUSH AFTER USING IV ACCESS Temazepam (Restoril) 15 mg PO HS PRN PRN Reason: INSOMNIA Last Admin: 11/23/17 23:25 Dose: 15 mg Exam Vital signs: Vital Signs 11/23/17 11:41 11/23/17 16:00 11/23/17 17:54 Temperature 98.3 F 98.1 F 97.7 F Pulse Rate 66 72 68 Respiratory Rate 14 14 18 Blood Pressure 123/77 111/61 122/63 Pulse Oximetry 97 98 95 11/23/17 20:00 11/24/17 00:00 11/24/17 04:00 Temperature 98.4 F 98.0 F 98.2 F Pulse Rate 73 56 L 62 Respiratory Rate 16 16 16 Blood Pressure 114/72 105/56 L 128/71 Pulse Oximetry 97 97 98 Intake & Output 11/23/17 11/24/17 11/24/17 18:59 06:59 18:59 Intake Total 800 / 800 1654 / 1654 Balance 800 / 800 1654 / 1654 Weight 101.3 kg Intake: IV 800 / 800 1414 / 1414 Ofirmev Inj 1,000 mg In 100 ml 100 / 100 200 / 200 @ 400 mls/hr IV.SIG Q6H [facility] Rx# :[id number] Unasyn Inj 3 GM In NS Inj 100 200 / 200 200 / 200 ML @ 200 mls/hr IV.SIG Q6H [facility] Rx#:[id number] Vancomycin Inj 1,400 MG In NS 500 / 500 1014 / 1014 Inj 500 ML @ 250 mls/hr IV.SIG Q8H [facility] Rx#:[id number] Oral 240 / 240 Other: # Voids 3 Date of Last Bowel Movement 11/23/17 Narrative: GENERAL: SKIN: Warm and dry. HEAD: Normocephalic. EYES: No scleral icterus. No injection or drainage. NECK: Supple, trachea midline. No JVD or lymphadenopathy. CARDIOVASCULAR: Regular rate and rhythm without murmurs, gallops, or rubs. RESPIRATORY: Breath sounds equal bilaterally. No accessory muscle use. GASTROINTESTINAL: Abdomen soft, non-tender, nondistended. MUSCULOSKELETAL: No cyanosis, or edema. Results 11/23/17 04:22 11/24/17 05:20 Comprehensive Metabolic Panel 11/24/17 Range/Units 05:20 Creatinine 0.54 (0.50-1.00) mg/dL Intake and Output 11/23/17 11/24/17 11/24/17 22:59 06:59 14:59 Intake Total 914 / 914 940 / 940 Balance 914 / 914 940 / 940 Intake: IV 914 / 914 700 / 700 Ofirmev Inj 1,000 mg In 100 ml 200 / 200 100 / 100 @ 400 mls/hr IV.SIG Q6H [facility] Rx# :[id number] Unasyn Inj 3 GM In NS Inj 100 200 / 200 100 / 100 ML @ 200 mls/hr IV.SIG Q6H [facility] Rx#:[id number] Vancomycin Inj 1,400 MG In NS 514 / 514 500 / 500 Inj 500 ML @ 250 mls/hr IV.SIG Q8H [facility] Rx#:[id number] Oral 240 / 240 Other: # Voids 2 3 Weight 101.3 kg 101.3 kg Assessment and Plan - Assessment (1) Fever Code(s): R50.9 - Fever, unspecified Status: Acute (2) Gram positive septicemia Code(s): A41.89 - Other specified sepsis Status: Acute - Plan 31 yo female with anxiety and chronic low back pain presented to ED in [place] on 11/19/17 with progressively worsening low back pain and fever. She was ultimately transferred to [facility] for an IR aspiration of lumbar disc. Workup thus far has shown positive blood culture and a 2D echo demonstrating normal EF with mild mitral regurgitation and no vegetations. She does have a noted history of self-mutilation including cutting to her arms. Will plan for JODI this morning to rule out endocarditis. keep npo. Discussed Condition With: Dr. Rojas and Dr. Leyva <Levon Rojas - Last Filed: 11/24/17 08:34> History of Present Illness Primary Care Provider: No Primary Care Physician [facility] - Medical History Medical History: Medical History (Last Reviewed 11/23/17 @ 09:19 by Bartolo Cuellar) Anxiety Bacteremia Onset Date: ~2013 Depression Migraine - Surgical History Surgical History: Surgical History (Last Reviewed 11/23/17 @ 09:19 by Bartolo Cuellar) History of cholecystectomy History of dental surgery Hx of eye surgery Medications and Allergies Active Medications: Active Medications Acetaminophen (Tylenol) 650 mg PO Q6H PRN PRN Reason: FEVER Hydrocodone Bitart/Acetaminophen (Ivanhoe 5/325) 1 tab PO Q6H PRN PRN Reason: pain 1-5 Last Admin: 11/24/17 05:30 Dose: 1 tab Al Hydroxide/Mg Hydroxide (Milk Of Magnesia Liq) 30 ml PO Q12H PRN PRN Reason: Mild Constipation Bisacodyl (Dulcolax Supp) 10 mg RECTAL DAILY PRN PRN Reason: SEVERE CONSITIPATION Cyclobenzaprine HCl (Flexeril) 10 mg PO Q8H PRN PRN Reason: PAIN SCALE 6 TO 10 Last Admin: 11/24/17 03:58 Dose: 10 mg Escitalopram Oxalate (Lexapro) 5 mg PO DAILY [facility] Last Admin: 11/23/17 09:15 Dose: 5 mg Ampicillin Sodium/Sulbactam (Sodium 3 gm/ Sodium Chloride) 100 mls @ 200 mls/ hr IV.SIG Q6H [facility] Last Infusion: 11/24/17 04:49 Dose: Infused Pharmacy Profile Note (Vancomycin Consult Pharmacy) 0 mls @ 0 mls/hr OTHER UNSCH [facility] Vancomycin HCl 1,400 mg/ (Sodium Chloride) 514 mls @ 250 mls/hr IV.SIG Q8H [facility] Last Infusion: 11/24/17 03:34 Dose: 250 mls/hr Acetaminophen (Ofirmev Inj) 1,000 mg in 100 mls @ 400 mls/hr IV.SIG Q6H [facility] Stop: 11/24/17 09:14 Last Infusion: 11/24/17 04:05 Dose: Infused Lactulose (Lactulose Liq) 30 ml PO DAILY PRN PRN Reason: SEVERE CONSITIPATION Lorazepam (Ativan) 1 mg PO Q8H PRN PRN Reason: ANXIETY Last Admin: 11/23/17 19:46 Dose: 1 mg Ondansetron HCl (Zofran Inj) 4 mg IV.PUSH Q6H PRN PRN Reason: NAUSEA OR VOMITING Last Admin: 11/24/17 05:33 Dose: 4 mg Ondansetron HCl (Zofran Odt) 4 mg PO Q4H PRN PRN Reason: nausea/vomiting Senna/Docusate Sodium (Yaneli-Colace) 1 tab PO BID [facility] Last Admin: 11/24/17 08:08 Dose: Not Given Sennosides (Senokot) 17.2 mg PO Q12H PRN PRN Reason: Moderate Constipation Sodium Chloride (Ns Flush) 2 ml IV.FLUSH PRN PRN PRN Reason: FLUSH AFTER USING IV ACCESS Temazepam (Restoril) 15 mg PO HS PRN PRN Reason: INSOMNIA Last Admin: 11/23/17 23:25 Dose: 15 mg Exam Vital signs: Vital Signs 11/23/17 11:41 11/23/17 16:00 11/23/17 17:54 Temperature 98.3 F 98.1 F 97.7 F Pulse Rate 66 72 68 Respiratory Rate 14 14 18 Blood Pressure 123/77 111/61 122/63 Pulse Oximetry 97 98 95 11/23/17 20:00 11/24/17 00:00 11/24/17 04:00 Temperature 98.4 F 98.0 F 98.2 F Pulse Rate 73 56 L 62 Respiratory Rate 16 16 16 Blood Pressure 114/72 105/56 L 128/71 Pulse Oximetry 97 97 98 Intake & Output 11/23/17 11/24/17 11/24/17 18:59 06:59 18:59 Intake Total 800 / 800 1654 / 1654 Balance 800 / 800 1654 / 1654 Weight 101.3 kg Intake: IV 800 / 800 1414 / 1414 Ofirmev Inj 1,000 mg In 100 ml 100 / 100 200 / 200 @ 400 mls/hr IV.SIG Q6H [facility] Rx# :[id number] Unasyn Inj 3 GM In NS Inj 100 200 / 200 200 / 200 ML @ 200 mls/hr IV.SIG Q6H [facility] Rx#:[id number] Vancomycin Inj 1,400 MG In NS 500 / 500 1014 / 1014 Inj 500 ML @ 250 mls/hr IV.SIG Q8H [facility] Rx#:[id number] Oral 240 / 240 Other: # Voids 3 Date of Last Bowel Movement 11/23/17 Results 11/23/17 04:22 11/24/17 05:20 Comprehensive Metabolic Panel 11/24/17 Range/Units 05:20 Creatinine 0.54 (0.50-1.00) mg/dL Intake and Output 11/23/17 11/24/17 11/24/17 22:59 06:59 14:59 Intake Total 914 / 914 940 / 940 Balance 914 / 914 940 / 940 Intake: IV 700 / 700 Ofirmev Inj 1,000 mg In 100 ml 200 / 200 100 / 100 @ 400 mls/hr IV.SIG Q6H [facility] Rx# :[id number] Unasyn Inj 3 GM In NS Inj 100 200 / 200 100 / 100 ML @ 200 mls/hr IV.SIG Q6H [facility] Rx#:[id number] Vancomycin Inj 1,400 MG In NS 514 / 514 500 / 500 Inj 500 ML @ 250 mls/hr IV.SIG Q8H [facility] Rx#:[id number] Oral 240 / 240 Other: # Voids 2 3 Weight 101.3 kg 101.3 kg Assessment and Plan - Plan Agree with above. <Eden Rey - Last Filed: 11/24/17 08:04> (1) Fever Qualifiers: Fever type: due to other condition Qualified Code(s): R50.81 - Fever presenting with conditions classified elsewhere
[2017-11-24] MEDS: Escitalopram 10 MG Tablet PO SCH (09:58)
[2017-11-24] MEDS ORDERED: Chlorhexidine Gluconate 2% 1 Pack (2 Cloths) TOPICAL SCH (11:15)
[2017-11-24] MEDS ORDERED: Metoprolol Tartrate 25 MG Tablet PO SCH (11:15)
[2017-11-24] MEDS ORDERED: Sodium Chlor 0.9% Inj 500 ML IV.SIG SCH (12:00)
--- NOTE | 2017-11-24 16:53 | ECHRPT ---
Indication: SEPSIS CONCLUSIONS Mild thickening of the tricuspid valve leaflets. There is mild to moderate tricuspid valve regurgita tion. The estimated pulmonary arterial pressure is 33.4 mmHg. No tricuspid valve stenosis. Mobile echodensity is noted on the inflow side of the tricuspid valve, approximately 1 x 0.5 cm. Normal left ventricular size and wall thickness. The left ventricular systolic function is normal wi th an estimated ejection fraction in the range of 60-65%. Left ventricular diastolic function parameters a re normal. BP: / HR: Rhythm: MEASUREMENTS (Male / Female) Normal Values Technical Quality: DOPPLER TR Peak Velocity 242.0 cm/s Pulmonary Artery Systolic 33.4 mmHg TR Peak Gradient 23.4 mmHg Right Ventricular Systoli 33.4 mmHg Right Atrial Pressure 10.0 mmHg Medications Complications Proc. Components The patient was brought to the diagnostic imaging area in a fasting state after o btaining an informed consent. The patient was premedicated with IV Versed and IV Fentanyl. The sr solutions consultant ior pharynx was sprayed with Cetacaine spray and the patient was administered viscous Xylocaine 2 %. The JODI probe was passed into the posterior pharynx , mid-esophagus, distal esophagus, and gastric fundus. JODI was performed at multiple levels. The patient tolerated the procedure well and there were no complications. The patient was transferred to the floor in satisfactory condition.. FINDINGS LEFT VENTRICLE Normal left ventricular size and wall thickness. The left ventricular systolic function is normal wi th an estimated ejection fraction in the range of 60-65%. Left ventricular diastolic function parameters a re normal. RIGHT VENTRICLE Normal right ventricular size and systolic function. LEFT ATRIUM The left atrial size is normal. RIGHT ATRIUM The right atrial size is normal. ATRIAL SEPTUM Normal atrial septal thickness without atrial level shunting by limited color doppler interrogation. AORTA The aortic root and proximal ascending aorta are normal in size on limited imaging. MITRAL VALVE Structurally normal mitral valve. Mild mitral valve regurgitation. No mitral valve stenosis. AORTIC VALVE Trileaflet aortic valve. No aortic valve stenosis or regurgitation. TRICUSPID VALVE Mild thickening of the tricuspid valve leaflets. There is mild to moderate tricuspid valve regurgita tion. The estimated pulmonary arterial pressure is 33.4 mmHg. No tricuspid valve stenosis. Mobile echodensity is noted on the inflow side of the tricuspid valve, approximately 1 x 0.5 cm. VESSELS The inferior vena cava is normal in size. PULMONARY VALVE No pulmonary valve regurgitation or stenosis. PERICADIUM No pericardial effusion. Portillo Leyva MD, FACC (Electronically Signed) Final Date:24 November 2017 16:52
--- NOTE | 2017-11-24 17:33 | P.PNPSY ---
Subjective Remarks: Patient seen and examined. Chart reviewed. Patient utilized a single dose of Ativan today but did not require any Ativan at all yesterday. Case discussed with nursing staff. No behavioral issues noted. On my examination today, the patient complains of some ongoing anxiety. This is primarily related to stress of ongoing medical hospitalization, she tells me. She denies any urge to self injure noting that it is believed that bacteremia is related to history of self injury and "I never want to do this again" referring to the hospitalization. No confusion or psychotic symptoms. Affect is a little bit dysphoric today. Denies side effects from Lexapro. Continues to complain of back pain but otherwise no acute physical complaints. Vital Signs Temp Pulse Resp BP Pulse Ox 11/24/17 12:00 98.6 F 56 L 20 141/73 H 99 11/24/17 08:00 98.5 F 68 20 139/80 97 11/24/17 04:00 98.2 F 62 16 128/71 98 11/24/17 00:00 98.0 F 56 L 16 105/56 L 97 11/23/17 20:00 98.4 F 73 16 114/72 97 11/23/17 17:54 97.7 F 68 18 122/63 95 Intake and Output 11/24/17 11/24/17 11/24/17 06:59 14:59 22:59 Intake Total 940 / 940 Balance 940 / 940 Intake: IV 700 / 700 Ofirmev Inj 1,000 mg In 100 ml 100 / 100 @ 400 mls/hr IV.SIG Q6H [facility] Rx# :[id number] Unasyn Inj 3 GM In NS Inj 100 100 / 100 ML @ 200 mls/hr IV.SIG Q6H [facility] Rx#:[id number] Vancomycin Inj 1,400 MG In NS 500 / 500 Inj 500 ML @ 250 mls/hr IV.SIG Q8H [facility] Rx#:[id number] Oral 240 / 240 Other: # Voids 3 Weight 101.3 kg Laboratory Results - last 24 hr 11/24/17 05:20 Creatinine 0.54 Estimated GFR Greater than 89 Labs reviewed. Review of Systems All other systems reviewed negative except as stated in HPI Mental Status Examination Appearance: Appropriate Consciousness: Alert Orientation: x4 Motor Activity: Other (No abnormal motor movements noted) Speech: Unremarkable Language: Adequate Fund of Knowledge: Adequate Attention and Concentration: Adequate Memory: Unremarkable (Remains grossly intact on clinical exam) Mood: Anxious Affect: Anxious Thought Process & Associations: Intact, Logical, Goal directed, Linear Thought Content: Appropriate Hallucination Type: None Delusion Type: None Suicidal Ideation: No (Also denies urge to self injure) Suicidal Plan: No Suicidal Intention: No Homicidal Ideation: No Homicidal Plan: No Homicidal Intention: No Insight: Adequate Judgment: Adequate Assessment and Plan - Assessment (1) Anxiety disorder Code(s): F41.9 - Anxiety disorder, unspecified Status: Acute (2) Non-suicidal self-harm Code(s): R45.89 - Other symptoms and signs involving emotional state Status: Acute - Plan Plan: Tolerating Lexapro well. As previously noted, would recommend slow titration of this agent, perhaps to 10mg/day in 1 week if well tolerated. Support provided. Otherwise, recommendations as before. Case d/w RN. I will plan to follow up after the weekend but will be surgeon partner over the weekend if there are issues. Justification for Continued Inpatient Stay: Per primary team. (1) Anxiety disorder Qualifiers: Anxiety disorder type: unspecified anxiety disorder Qualified Code(s): F41.9 - Anxiety disorder, unspecified
--- NOTE | 2017-11-24 18:22 | P.PNIM ---
Subjective Interval history: Pt c/o generalized pain. Physical Exam Vital signs: Vital Signs 11/23/17 20:00 11/24/17 00:00 11/24/17 04:00 Temperature 98.4 F 98.0 F 98.2 F Pulse Rate 73 56 L 62 Respiratory Rate 16 16 16 Blood Pressure 114/72 105/56 L 128/71 Pulse Oximetry 97 97 98 11/24/17 08:00 11/24/17 12:00 11/24/17 16:00 Temperature 98.5 F 98.6 F 97.7 F Pulse Rate 68 56 L 92 H Respiratory Rate 20 20 20 Blood Pressure 139/80 141/73 H 111/57 L Pulse Oximetry 97 99 97 Intake & Output 11/23/17 11/24/17 11/24/17 18:59 06:59 18:59 Intake Total 800 / 800 1654 / 1654 Balance 800 / 800 1654 / 1654 Weight 101.3 kg Intake: IV 800 / 800 1414 / 1414 Ofirmev Inj 1,000 mg In 100 ml 100 / 100 200 / 200 @ 400 mls/hr IV.SIG Q6H [facility] Rx# :[id number] Unasyn Inj 3 GM In NS Inj 100 200 / 200 200 / 200 ML @ 200 mls/hr IV.SIG Q6H [facility] Rx#:[id number] Vancomycin Inj 1,400 MG In NS 500 / 500 1014 / 1014 Inj 500 ML @ 250 mls/hr IV.SIG Q8H [facility] Rx#:[id number] Oral 240 / 240 Other: # Voids 3 Date of Last Bowel Movement 11/23/17 Narrative: GENERAL: NAD, AAOx3 SKIN: Warm and dry. multiple areas of cut wounds arms with scabs no active drainage appear healing CARDIO: Regular RESP: Breath sounds equal bilaterally. No accessory muscle use. ABD: +BS, soft, non-tender, nondistended. EXT: No cyanosis, or edema. Results - Labs CBC & Chem 7: 11/25/17 07:08 11/25/17 07:08 Laboratory Results - last 24 hr 11/24/17 05:20 Creatinine 0.54 Estimated GFR Greater than 89 Microbiology 11/22/17 10:36 Fluid - Other Gram Stain - Final 11/22/17 10:36 Fluid - Other Body Fluid Culture - Preliminary No growth in 48 hours 11/22/17 14:03 Blood - Peripheral Aerobic Blood Culture - Preliminary No growth in 2 days 11/22/17 14:03 Blood - Peripheral Anaerobic Blood Culture - Preliminary No growth in 2 days 11/22/17 14:10 Blood - Peripheral Aerobic Blood Culture - Preliminary No growth in 2 days 11/22/17 14:10 Blood - Peripheral Anaerobic Blood Culture - Preliminary No growth in 2 days Assessment and Plan - Assessment (1) Gram positive septicemia Code(s): A41.89 - Other specified sepsis Status: Acute Plan: Staph Aureus bacteremia Severe back pain, possible discitis - comgmt with Psychiatry, ID, Neurosurgery - Pt is a 31 y/o WF with hx of anxiety and self mutilating behavior. - Pt was initially seen in [place] ED on 11/19/16 with worsening severe low back pain and fevers and was transferred to [facility] - Blood Cx (11/19) --> MSSA - Blood Cx (11/20) --> MSSA - Blood Cx (11/22) --> NGTD - Fluid Cx (11/22) from L5/S1 disc Bx - gram stain --> NO organisms - Culture (11/22) --> NGTD - Pt was started on Zosyn and Vancomycin initially - CT and MRI of lumbar spine and sacrum with noted degenerative disc disease L5- S1 but no evidence of disc protrusion or spinal canal stenosis. - She was seen by ID and Zosyn was stopped and Unasyn was started on 11/20. - Bone Scan 11/21/17 noted moderate uptake at the lumbosacral junction, discitis should be considered in the appropriate clinical situation. - She was transferred to [facility] on 11/21 for IR to perform lumbar aspiration - She is noted to have self mutilating behavior with cutting her arms with razor blades. She has multiple scars. She reports that the last time she this was around 2-3 months ago but she did have some scars noted in the antecubital fossas which she reports is secondary to abscesses and skin infections which occurred subsequent to her cutting. - awaiting Echocardiogram, may require JODI to r/o endocarditis - Unasyn (11/20 - present) - Vancomycin (11/21 - present) - norco prn - received scheduled IV tylenol x 24 hours, K-thermia - JODI (11/24) --> valvular vegetation . Mobile echodensity is noted on the inflow side of the tricuspid valve, approximately 1 x 0.5 cm. - will d/w Infectious Disease - Flexeril PRN - Supportive care - DVT prophylaxis Diarrhea - obtain stool studies - obtain C.Diff PCR - repeat CBC, BMP in AM Anxiety Self-mutilating behavior - Psychiatry following - Ativan PO PRN - Pt stared on lexapro - Pt will need to continue outpt counselling with [facility] Mental health following discharge (2) Fever Code(s): R50.9 - Fever, unspecified Status: Acute (3) Anxiety disorder Code(s): F41.9 - Anxiety disorder, unspecified Status: Acute (4) Deliberate self-cutting Code(s): Z72.89 - Other problems related to lifestyle Status: Acute (5) Lumbar back pain Code(s): M54.5 - Low back pain Status: Acute - Plan Patient examined. Assessment and plan formulated with Adeola Shelby PA-C. I agree with the above. (2) Fever Qualifiers: Fever type: due to other condition Qualified Code(s): R50.81 - Fever presenting with conditions classified elsewhere (3) Anxiety disorder Qualifiers: Anxiety disorder type: unspecified anxiety disorder Qualified Code(s): F41.9 - Anxiety disorder, unspecified
[2017-11-24] MEDS ORDERED: Temazepam 15 MG Capsule PO PRN (18:36)
[2017-11-24] MEDS: Lidocaine 5% Patch T-DERMAL SCH (20:03)
[2017-11-24] MEDS: LORazepam 1 MG Tablet PO PRN (21:18)
--- NOTE | 2017-11-25 07:39 | P.PNCA ---
<Eden Rey Sha - Last Filed: 11/25/17 07:35> Subjective Interval history: no reported chest pain, sob or palpitations. JODI showed vegetation on tricuspid valve Physical Exam Vital signs: Vital Signs 11/24/17 08:00 11/24/17 12:00 11/24/17 16:00 Temperature 98.5 F 98.6 F 97.7 F Pulse Rate 68 56 L 92 H Respiratory Rate 20 20 20 Blood Pressure 139/80 141/73 H 111/57 L Pulse Oximetry 97 99 97 11/24/17 22:26 11/25/17 00:00 11/25/17 07:24 Temperature 98.3 F 98.1 F 98.4 F Pulse Rate 92 H 75 65 Respiratory Rate 18 18 18 Blood Pressure 99/57 L 126/67 137/82 Pulse Oximetry 94 L 96 96 Intake & Output 11/24/17 11/25/17 11/25/17 18:59 06:59 18:59 Intake Total 842 / 842 300 / 300 Output Total 900 / 900 Balance 842 / 842 -600 / -600 Weight 101.6 kg Intake: IV 100 / 100 300 / 300 Prostaphlin Inj 2 GM In NS Inj 100 / 100 300 / 300 100 ML @ 200 mls/hr IV.SIG Q4H BALBIR Rx#:[id number] Oral 742 / 742 Output: Urine 900 / 900 Other: # Voids 10 # Bowel Movements 10 Narrative: GENERAL: NAD, AAOx3 SKIN: Warm and dry. multiple areas of cut wounds arms with scabs no active drainage appear healing CARDIO: RRR, S1, S2, no murmurs RESP: Breath sounds equal bilaterally. No accessory muscle use. ABD: +BS, soft, non-tender, nondistended. EXT: No cyanosis, or edema. Assessment and Plan - Assessment (1) Fever Code(s): R50.9 - Fever, unspecified Status: Acute (2) Gram positive septicemia Code(s): A41.89 - Other specified sepsis Status: Acute - Plan 31 yo female with anxiety and chronic low back pain presented to ED in [place] on 11/19/17 with progressively worsening low back pain and fever. She was ultimately transferred to [facility] for an IR aspiration of lumbar disc. Workup thus far has shown positive blood culture and a 2D echo demonstrating normal EF with mild mitral regurgitation and no vegetations. She does have a noted history of self-mutilation including cutting to her arms. bacterial endocarditis- JODI revealed mobile echodensity to inflow side of tricuspid valve, 1 x 0.5cm ID following, cont extended course of IV antibiotics. vitals stable no chest pain will likely sign off today <Levon Rojas - Last Filed: 11/25/17 08:33> Subjective Interval history: Physical Exam Vital signs: Vital Signs 11/24/17 12:00 11/24/17 16:00 11/24/17 22:26 Temperature 98.6 F 97.7 F 98.3 F Pulse Rate 56 L 92 H 92 H Respiratory Rate 20 20 18 Blood Pressure 141/73 H 111/57 L 99/57 L Pulse Oximetry 99 97 94 L 11/25/17 00:00 11/25/17 07:24 Temperature 98.1 F 98.4 F Pulse Rate 75 65 Respiratory Rate 18 18 Blood Pressure 126/67 137/82 Pulse Oximetry 96 96 Intake & Output 11/24/17 11/25/17 11/25/17 18:59 06:59 18:59 Intake Total 842 / 842 300 / 300 Output Total 900 / 900 Balance 842 / 842 -600 / -600 Weight 101.6 kg Intake: IV 100 / 100 300 / 300 Prostaphlin Inj 2 GM In NS Inj 100 / 100 300 / 300 100 ML @ 200 mls/hr IV.SIG Q4H BALBIR Rx#:[id number] Oral 742 / 742 Output: Urine 900 / 900 Other: # Voids 10 # Bowel Movements 10 Assessment and Plan - Plan 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 Currently on Abx, will defer to ID. will sign off. call with any further questions. <Eden Rey - Last Filed: 11/25/17 07:35> (1) Fever Qualifiers: Fever type: due to other condition Qualified Code(s): R50.81 - Fever presenting with conditions classified elsewhere
[2017-11-25 07:53] LABS: Baso % (Auto) 0.3 % (0.0-2.0); Eos # (Auto) 0.1 th/mm3 (0.0-0.4); Eos % (Auto) 1.3 % (0.0-4.0); Hematocrit 32.7 % (35.0-46.0); Hemoglobin 10.8 gm/dL (11.6-15.3); Lymph # (Auto) 2.5 th/mm3 (1.0-4.8); Lymph % (Auto) 27.9 % (9.0-44.0); Mean Corpuscular HGB Conc 32.9 % (32.0-36.0); Mean Corpuscular Hemoglobin 25.4 pg (27.0-34.0); Mono # (Auto) 0.6 th/mm3 (0.0-0.9); Mono % (Auto) 6.8 % (0.0-8.0); Neut # (Auto) 5.7 th/mm3 (1.8-7.7); Neut % (Auto) 63.7 % (16.0-70.0); Platelet Count 467 th/mm3 (150-450); Red Blood Count 4.24 mil/mm3 (4.00-5.30); Red Cell Distribution Width 15.9 % (11.6-17.2); White Blood Count 8.9 th/mm3 (4.0-11.0)
[2017-11-25 08:13] LABS: Anion Gap 9 meq/L (5-15); Blood Urea Nitrogen 5 mg/dL (7-18); Calcium 8.8 mg/dL (8.5-10.1); Carbon Dioxide 24.9 meq/L (21.0-32.0); Chloride 106 meq/L (98-107); Glomerular Filtration Rate Greater Than 89 mL/min (>89); Glucose,Random 80 mg/dL (74-106); Magnesium 2.5 mg/dL (1.5-2.5); Potassium 3.7 meq/L (3.5-5.1); Sodium 140 meq/L (136-145)
[2017-11-25] MEDS: Lidocaine 5% Patch T-DERMAL SCH (08:37)
[2017-11-25] MEDS: Escitalopram 10 MG Tablet PO SCH (08:37)
[2017-11-25] MEDS: Senna/Docusate Sodium 8.6/50 MG Tablet PO SCH ×2 (08:38→22:11)
--- NOTE | 2017-11-25 12:24 | P.DCO ---
Post Hospital Infusion Therapy Location of Infusion Therapy: Home Health Care IV Infusion Order Patient Weight: 101.6 kg - Diagnosis (1) Staphylococcus aureus bacteremia with sepsis Code(s): A41.01 - Sepsis due to Methicillin susceptible Staphylococcus aureus - Administer Medication Oxacillin Dose: 2 grams IV Additional Dosing Instructions: Oxacillin 2 gm IV q4H, use CADD plus pump Stop Treatment: 01/04/18 - Additional Information Venous Access: PICC Line Additional Instructions: [x] Peripheral flush and dressing changes per protocol [x] Implanted port and central defensive line coach: * Implanted port: 10 ml Normal Saline followed by 5 ml Heparin 100 units/ml Heparin flush after each use and monthly to maintain. [] May leave port accessed during therapy. [] May leave peripheral site accessed for duration of therapy. [x] If patient has SOB or respiratory distress, check oxygen saturation. If less than 90% or clinical signs of respiratory distress, administer oxygen at 2 L/min. via nasal cannula and notify physician. [x] Anaphylaxis/Reaction orders: * Stop infusion. * Keep IV line open with saline flush. * Notify physician. * Monitor vital signs every 15 minutes until symptoms resolve. * Check Oxygen saturation; Oxygen at 2 L/min. via nasal cannula if less than 90% or clinical signs of respiratory distress. * Administer diphenhydramine (Benadryl) 25 mg IV STAT, (unless patient has received as pre-med). May repeat once, if necessary. * Solu-Cortef 250 mg IVP over 30-60 seconds, use 100 mg vials for each dissolution. * Epinephrine (1mg/1 ml) 0.3 mg subcutaneously or IVP now with any signs of respiratory distress. * Check with physician for new additional pre-med orders if patient is re- challenged or re-treated. [x] May remove PICC line when treatment complete [x] If the patient is admitted to the hospital, the ED, or transferred via [facility]AC , complete transfer form including medication reconciliation order sheet. Weekly Labs: CBC w/diff, Creatinine, LFTs (Hepatic Function Test) (Labs every Tuesday, copy to Dr Felicia Najera and ne ) Case Management Consult: Yes Allergies ketorolac [From Toradol] Allergy (Verified 11/19/17 08:19) Shortness of Breath meperidine [From Demerol] Allergy (Verified 11/19/17 08:19) Headache
--- NOTE | 2017-11-25 12:29 | P.PNID ---
Subjective Remarks: 31/F patient says she had chronic back pain and h/o anxiety when she cuts herself says she had fever with chills a couple of days and then her back pain got lot worse so she came to the ER and was transferred to [facility] to get a MRI. MRI Lumbar spine and sacral area was normal. Patient has positive blood cultures and so the consult. She denies drug use but does say that in 2013 too she had bacteremia due to cutting herself and had to be treated with IV antibiotics for 12 weeks. She at that time was in [place]. Notes reviewed Back pain feels better Temps ok BC with MSSA Had aspiration L5-S1, C/S negative MRI ok, but nuclear scan ?discitiis TTE with possible vegetation in TV JODI ok Antibiotics: Oxacillin Lines: PIV no evidence of infection Past Medical History: Bacteremia Migraine History of cholecystectomy History of dental surgery Hx of eye surgery Allergies/Adverse Reactions: Allergies ketorolac [From Toradol] Allergy (Verified 11/19/17 08:19) Shortness of Breath meperidine [From Demerol] Allergy (Verified 11/19/17 08:19) Headache Objective Vital Signs 11/24/17 16:00 11/24/17 22:26 11/25/17 00:00 Temperature 97.7 F 98.3 F 98.1 F Pulse Rate 92 H 92 H 75 Respiratory Rate 20 18 18 Blood Pressure 111/57 L 99/57 L 126/67 Pulse Oximetry 97 94 L 96 11/25/17 07:24 Temperature 98.4 F Pulse Rate 65 Respiratory Rate 18 Blood Pressure 137/82 Pulse Oximetry 96 Intake & Output 11/24/17 11/25/17 11/25/17 18:59 06:59 18:59 Intake Total 842 / 842 300 / 300 100 / 100 Output Total 900 / 900 Balance 842 / 842 -600 / -600 100 / 100 Weight 101.6 kg Intake: IV 100 / 100 300 / 300 100 / 100 Prostaphlin Inj 2 GM In NS Inj 100 / 100 300 / 300 100 / 100 100 ML @ 200 mls/hr IV.SIG Q4H BALBIR Rx#:[id number] Oral 742 / 742 Output: Urine 900 / 900 Other: # Voids 10 Date of Last Bowel Movement 11/25/17 # Bowel Movements 10 11/22/17 14:03 Blood - Peripheral Aerobic Blood Culture - Preliminary No growth in 3 days 11/22/17 14:03 Blood - Peripheral Anaerobic Blood Culture - Preliminary No growth in 3 days 11/22/17 14:10 Blood - Peripheral Aerobic Blood Culture - Preliminary No growth in 3 days 11/22/17 14:10 Blood - Peripheral Anaerobic Blood Culture - Preliminary No growth in 3 days 11/25/17 10:00 Stool Stool for WBCs - Pending 11/25/17 10:00 Stool Enteric Pathogens (PCR) - Pending 11/22/17 10:36 Fluid - Other Gram Stain - Final 11/22/17 10:36 Fluid - Other Body Fluid Culture - Final No growth in 72 hours (aerobically and anaerobically ) 11/20/17 12:53 Blood - Other Aerobic Blood Culture - Final Staphylococcus aureus 11/20/17 12:53 Blood - Other Anaerobic Blood Culture - Final Staphylococcus aureus 11/20/17 01:20 Clean Catch Urine Urine Culture - Final No growth in 48 hours Lab - Hematology Results 11/25/17 07:08 WBC 8.9 RBC 4.24 Hgb 10.8 L Hct 32.7 L MCV 77.0 L MCH 25.4 L MCHC 32.9 RDW 15.9 Plt Count 467 H D MPV 7.0 Neut % (Auto) 63.7 Lymph % (Auto) 27.9 [place] % (Auto) 6.8 Eos % (Auto) 1.3 Baso % (Auto) 0.3 Neut # (Auto) 5.7 Lymph # (Auto) 2.5 [place] # (Auto) 0.6 Eos # (Auto) 0.1 Baso # (Auto) 0.0 WBC Differential . Differential Comment Auto diff final Lab - Chemistry Results 11/24/17 11/25/17 05:20 07:08 Sodium 140 Potassium 3.7 Chloride 106 Carbon Dioxide 24.9 Anion Gap 9 BUN 5 L Creatinine 0.54 0.60 Estimated GFR Greater than 89 Greater than 89 Random Glucose 80 Calcium 8.8 Magnesium 2.5 Imaging: ITS Impressions Sacrum/Coccyx MRI 11/19/17 00:00 CONCLUSION: Negative sacral MRI examination. Lumbar Spine MRI 11/19/17 15:07 CONCLUSION: Degenerative disc disease L5-S1. No evidence of disc protrusion or spinal canal stenosis. Bone Scan Nuclear Medicine 11/21/17 00:00 CONCLUSION: 1. Moderate uptake at the lumbosacral junction. 2. Discitis should be considered in the appropriate clinical situation Needle Biopsy/Aspiration X-Ray 11/22/17 00:00 CONCLUSION: 1. Uncomplicated needle biopsy of the L5-S1 disc space as above. Physical Exam: GENERAL: awake and alert, not in respiratory distress. SKIN: Cool and dry. No generalized rash, no ecchymoses and no evidence of embolic lesions. Has multiple scars in BUE HEAD: Atraumatic. Normocephalic. No temporal wasting, or tenderness. EYES: [place] conjunctiva. No petechia or hemorrhage. Pupils equal, round and reactive to light. Extraocular movements full and intact. No scleral icterus. No injection or drainage. EARS, NOSE AND THROAT: Nose without bleeding or purulent nasal discharge. No sinus tenderness. Mucous membranes pink and moist. No oral lesions noted. NECK: Trachea midline. Supple and not tender, no meningeal signs CARDIOVASCULAR: Regular rate and rhythm. No murmurs, rubs or gallops heard RESPIRATORY: Clear to auscultation. Breath sounds equal bilaterally. No rales , wheezing or rhonchi ABDOMEN: Soft, non-tender, nondistended. Bowel sounds present and normoactive. No guarding. No rebound. No organomegaly. EXTREMITIES: No clubbing, cyanosis, or edema.No joint effusion, has good ROM. No calf tenderness. Well perfused and warm. NEUROLOGICAL: Awake and alert. Cranial nerves grossly intact. Motor grossly within normal limits. PSYCHIATRIC: Normal affect, calm and cooperative. LINE: No evidence of infection Assessment and Plan (1) Staphylococcus aureus bacteremia with sepsis Status: Acute Code(s): A41.01 - Sepsis due to Methicillin susceptible Staphylococcus aureus - Plan Impression MSSA sepsis on presentation Back pain, MRI shows degenerative disease, ?infection - Nuc scan (+) - ?early discitis - C/S negative, ?due to no infection, or due to prior Abx Rx Recommendation Continue to Oxacillin PICC Arrange for home IV Abx Infusion form filled out Needs follow with Dr Reinaldo RIVERA to D/C once arrangements made Explained plan to patient, and multiple family members also in room
[2017-11-25] MEDS ORDERED: Heparin Central Flush 100 UNIT/ML 5 ML Vial IV.FLUSH PRN (14:09)
--- NOTE | 2017-11-25 14:28 | XR ---
EXAM DATE: 11/25/2017 2:08 PM EDT AGE/SEX: 31 years / Female INDICATIONS: Post PICC line placement. CLINICAL DATA: This is the patient's subsequent encounter. Patient reports that signs and symptoms h ave been present for 1 day and indicates a pain score of 0/10. MEDICAL/SURGICAL HISTORY: None. Cholecystectomy. COMPARISON: [facility], CHEST 1V SINGLE AP, 11/19/2017. . FINDINGS: The lungs are clear without infiltrate, nodule, or mass. There is no appreciable pleural effusion for technique. Heart and mediastinum are unremarkable. Right PICC line is seen with tip ove rlapping the expected region of the SVC. No definite pneumothorax is seen for technique. CONCLUSION: No acute cardiopulmonary disease. Electronically signed by: Giuseppe Gonzalez MD 11/25/2017 2:27 PM EDT
--- NOTE | 2017-11-25 15:19 | P.DCO ---
- Diagnosis (1) Fever (2) Anxiety disorder - Physical Therapy Order: Evaluate and treat - Home Health Nursing Order: Medical education, Signs/symptoms of disease process, IV medication administration Instructions: IV abx per Dr. Rudolph Weekly Labs: CBC w/diff, Creatinine, LFTs (Hepatic Function Test) (Labs every Tuesday, copy to Dr Felicia Najera and Dr. Rudolph - Certification I have seen patient Nehal Hathaway on 11/25/17. My clinical findings support the need for the requested home health care services because: Limited mobility due to disease progression, Injectable medication education/ administration I certify that my clinical findings support that this patient is homebound because: Unsteady gait/balance (1) Fever Qualifiers: Fever type: due to other condition Qualified Code(s): R50.81 - Fever presenting with conditions classified elsewhere (2) Anxiety disorder Qualifiers: Anxiety disorder type: unspecified anxiety disorder Qualified Code(s): F41.9 - Anxiety disorder, unspecified
--- NOTE | 2017-11-25 16:32 | P.PNNS ---
Subjective Interval history: Pt awake and alert. Sitting up in chair. States low back pain but better today. No radiculopathy or paresthesias in LEs. Pt ambulates with walker. She is getting a PICC line today for her antibiotics. Physical Exam Vital signs: Vital Signs 11/24/17 22:26 11/25/17 00:00 11/25/17 07:24 Temperature 98.3 F 98.1 F 98.4 F Pulse Rate 92 H 75 65 Respiratory Rate 18 18 18 Blood Pressure 99/57 L 126/67 137/82 Pulse Oximetry 94 L 96 96 11/25/17 12:00 Temperature 98.9 F Pulse Rate 93 H Respiratory Rate 13 Blood Pressure 118/64 Pulse Oximetry 96 Intake & Output 11/24/17 11/25/17 11/25/17 18:59 06:59 18:59 Intake Total 842 / 842 300 / 300 200 / 200 Output Total 900 / 900 Balance 842 / 842 -600 / -600 200 / 200 Weight 101.6 kg Intake: IV 100 / 100 300 / 300 200 / 200 Prostaphlin Inj 2 GM In NS Inj 100 / 100 300 / 300 200 / 200 100 ML @ 200 mls/hr IV.SIG Q4H BALBIR Rx#:[id number] Oral 742 / 742 Output: Urine 900 / 900 Other: # Voids 10 Date of Last Bowel Movement 11/25/17 # Bowel Movements 10 - Constitutional no acute distress - Routine HEENT Exam Head: Present: normocephalic Eye: Present: PERRL - Routine Respiratory Exam Present: CTA bilaterally - Routine Cardiovascular Exam Present: RRR, S1, S2. Absent: murmur - Routine Abdominal Exam Present: soft, normoactive bowel sounds. Absent: tenderness, distended - Routine Extremities Exam Absent: cyanosis, edema - Routine Skin Exam Present: ecchymosis (Areas of ecchymosis on forearms bilaterally.) - Routine Neurological Exam Present: alert, oriented X3, moving all extremities, normal speech. Absent: sensory deficit, motor deficit, altered mental status - Detailed Neurological Exam: Coma Scale Eye Opening: Spontaneous Verbal Response: Oriented Motor Response: Obey commands Brandie Coma Scale Total: 15 - Routine Psychiatric Exam Present: normal affect, normal thought process, good insight (Pt expresses her wishes to go home when her PICC line is established.), good judgment Assessment and Plan - Assessment (1) Lumbar back pain Code(s): M54.5 - Low back pain Status: Acute (2) Fever Code(s): R50.9 - Fever, unspecified Status: Acute Qualifiers: Fever type: due to other condition Qualified Code(s): R50.81 - Fever presenting with conditions classified elsewhere (3) Gram positive septicemia Code(s): A41.89 - Other specified sepsis Status: Acute (4) Deliberate self-cutting Code(s): Z72.89 - Other problems related to lifestyle Status: Acute (5) Anxiety disorder Code(s): F41.9 - Anxiety disorder, unspecified Status: Acute Qualifiers: Anxiety disorder type: unspecified anxiety disorder Qualified Code(s): F41.9 - Anxiety disorder, unspecified (6) Non-suicidal self-harm Code(s): R45.89 - Other symptoms and signs involving emotional state Status: Acute (7) Staphylococcus aureus bacteremia with sepsis Code(s): A41.01 - Sepsis due to Methicillin susceptible Staphylococcus aureus Status: Acute - Plan Plan: Nonoperative treatment. Continue with antibiotics per ID. PICC line being set up. Continue with neuro checks while in hospital. Pt states Neurologically she is doing well. IV antibiotics per ID. Follow up cultures Daily PT and OT Continue Protonix for stress ulcer prophylaxis Continue [place] hose and SCD's for DVT prophylaxis
--- NOTE | 2017-11-25 17:20 | P.DCO ---
Post Hospital Infusion Therapy Location of Infusion Therapy: Home Health Care IV Infusion Order Appointment Date: 11/25/17 Patient Weight: 101.6 kg Allergies ketorolac [From Toradol] Allergy (Verified 11/19/17 08:19) Shortness of Breath meperidine [From Demerol] Allergy (Verified 11/19/17 08:19) Headache - Diagnosis (1) Gram positive septicemia Code(s): A41.89 - Other specified sepsis (2) Fever Code(s): R50.9 - Fever, unspecified (3) Anxiety disorder Code(s): F41.9 - Anxiety disorder, unspecified (4) Deliberate self-cutting Code(s): Z72.89 - Other problems related to lifestyle (5) Lumbar back pain Code(s): M54.5 - Low back pain - Administer Medication Cefazolin Dose: 2 grams IV Directions: q 8 hours Start Treatment: 11/25/17 Stop Treatment: 01/04/18 - Additional Information Additional Instructions: [x] Peripheral flush and dressing changes per protocol [x] Implanted port and central dragline mechanic: * Implanted port: 10 ml Normal Saline followed by 5 ml Heparin 100 units/ml Heparin flush after each use and monthly to maintain. [] May leave port accessed during therapy. [] May leave peripheral site accessed for duration of therapy. [x] If patient has SOB or respiratory distress, check oxygen saturation. If less than 90% or clinical signs of respiratory distress, administer oxygen at 2 L/min. via nasal cannula and notify physician. [x] Anaphylaxis/Reaction orders: * Stop infusion. * Keep IV line open with saline flush. * Notify physician. * Monitor vital signs every 15 minutes until symptoms resolve. * Check Oxygen saturation; Oxygen at 2 L/min. via nasal cannula if less than 90% or clinical signs of respiratory distress. * Administer diphenhydramine (Benadryl) 25 mg IV STAT, (unless patient has received as pre-med). May repeat once, if necessary. * Solu-Cortef 250 mg IVP over 30-60 seconds, use 100 mg vials for each dissolution. * Epinephrine (1mg/1 ml) 0.3 mg subcutaneously or IVP now with any signs of respiratory distress. * Check with physician for new additional pre-med orders if patient is re- challenged or re-treated. [x] May remove PICC line when treatment complete, after confirming with Physician. [x] If the patient is admitted to the hospital, the ED, or transferred via [facility] , complete transfer form including medication reconciliation order sheet. Weekly Labs: CBC w/diff, Creatinine, LFTs (Hepatic Function Test) Case Management Consult: Yes Additional Information: CBC w/diff, Creatinine, LFTs (Hepatic Function Test) (Labs every Tuesday, copy to Dr Felicia Najera and Dr. Rudolph ) (2) Fever Qualifiers: Fever type: due to other condition Qualified Code(s): R50.81 - Fever presenting with conditions classified elsewhere (3) Anxiety disorder Qualifiers: Anxiety disorder type: unspecified anxiety disorder Qualified Code(s): F41.9 - Anxiety disorder, unspecified
--- NOTE | 2017-11-25 18:10 | P.DS ---
<AdryfortunatoOlive W - Last Filed: 11/25/17 18:24> Date of admission: 11/22/17 10:58 Primary care physician: No Primary Care Physician Attending physician on discharge: Jair Villanueva Anticipated date of discharge: 11/25/17 Brief History from admission: 31-year-old white female who presented to [facility] ER for evaluation of low back pain and fever. Patient states that she has had low back pain for approximately one years time but in the last 2 days it has become progressively worse about an 8 out of 10 aggravated by moving, she is unable to get out of bed because of the pain. Patient for the last 2 days also has been running a temperature T-max approximately 102no associated cough sore throat no urine symptoms no nausea no vomiting. Patient did take some Tylenol or ibuprofen with poor results. Patient states that her back pain radiates to her sacral area but not down her legs there is no tingling or numbness no motor or sensory loss with good bladder control and bowel control. In the emergency room and [facility], patient had lab work which showed a slight elevation in WBC count rest of lab was unremarkable blood cultures were ordered and sent as well as a urine culture patient had a CAT scan of her lumbar spine which showed severe degenerative disc disease with neuroforaminal stenosis. The ER was concerned about a possible epidural abscess and she was sent to [facility] to undergo an MRI and further evaluation. DS: Diagnosis - Discharge Diagnosis (1) Staphylococcus aureus bacteremia with sepsis Status: Acute DS: Medications - Discharge Medications Prescriptions: cyclobenzaprine 10 mg PO Q6H PRN #12 tab PRN Reason: Muscle Spasm escitalopram oxalate 5 mg PO DAILY 30 Days #15 tab hydrocodone-acetaminophen 1 tab PO Q6H PRN #12 tab PRN Reason: Pain lidocaine [Lidoderm] 1 patch TRANSDERMAL DAILY #15 ea vancomycin 125 mg PO QID 14 Days #140 ml DS: Summary Hospital Course: Staph Aureus bacteremia Severe back pain, possible discitis - comgmt with Psychiatry, ID, Neurosurgery - Pt is a 31 y/o WF with hx of anxiety and self mutilating behavior. - Pt was initially seen in [facility] ED on 11/19/16 with worsening severe low back pain and fevers and was transferred to [facility] - Blood Cx (11/19) --> MSSA - Blood Cx (11/20) --> MSSA - Blood Cx (11/22) --> NGTD - Fluid Cx (11/22) from L5/S1 disc Bx - gram stain --> NO organisms - Culture (11/22) --> NGTD - Pt was started on Zosyn and Vancomycin initially - CT and MRI of lumbar spine and sacrum with noted degenerative disc disease L5- S1 but no evidence of disc protrusion or spinal canal stenosis. - She was seen by ID and Zosyn was stopped and Unasyn was started on 11/20. - Bone Scan 11/21/17 noted moderate uptake at the lumbosacral junction, discitis should be considered in the appropriate clinical situation. - She was transferred to [facility] on 11/21 for IR to perform lumbar aspiration - She is noted to have self mutilating behavior with cutting her arms with razor blades. She has multiple scars. She reports that the last time she this was around 2-3 months ago but she did have some scars noted in the antecubital fossas which she reports is secondary to abscesses and skin infections which occurred subsequent to her cutting. - awaiting Echocardiogram, may require JODI to r/o endocarditis - Unasyn (11/20 - 11/24) - Vancomycin (11/21 - 11/24) - Oxacillin 2 grams IV Q4H started 11/24 - 11/25 - Initially patient was going to be DC'd on IV Oxacillin but due to cost was changed to Ancef. Dr. Villanueva discussed with ID that cost was prohibitive to the patient and Dr. Rudolph then recommended Cefazolin 2 gram Q8H IV until 01/04 - norco prn - received scheduled IV tylenol x 24 hours, K-thermia - JODI (11/24) --> valvular vegetation . Mobile echodensity is noted on the inflow side of the tricuspid valve, approximately 1 x 0.5 cm. - Dr. Villanueva discussed with Infectious Disease - Flexeril PRN - Supportive care - DVT prophylaxis Diarrhea - resolved - obtain stool studies - obtain C.Diff PCR - patient reports that diarrhea has resolved 11/25/17 - patient understands risks and insist on being DC'd this evening. Discussed with Dr. Villanueva. Will DC home on Vancomycin 125mg PO QID x 14 days Anxiety Self-mutilating behavior - Psychiatry following - Ativan PO PRN - Pt stared on lexapro, patient to follow up with PCP for monitoring and dosage modifications - Pt will need to continue outpt counselling with [facility] following discharge - Time Spent with Patient Total time spent providing and/or coordinating discharge services: - Quality: VTE Deep Vein Thrombosis/Pulmonary Embolism Present on Admission: No Exam Vital signs: Vital Signs 11/24/17 22:26 11/25/17 00:00 11/25/17 07:24 Temperature 98.3 F 98.1 F 98.4 F Pulse Rate 92 H 75 65 Respiratory Rate 18 18 18 Blood Pressure 99/57 L 126/67 137/82 Pulse Oximetry 94 L 96 96 11/25/17 12:00 Temperature 98.9 F Pulse Rate 93 H Respiratory Rate 13 Blood Pressure 118/64 Pulse Oximetry 96 Intake & Output 11/24/17 11/25/17 11/25/17 18:59 06:59 18:59 Intake Total 842 / 842 300 / 300 200 / 200 Output Total 900 / 900 Balance 842 / 842 -600 / -600 200 / 200 Weight 101.6 kg Intake: IV 100 / 100 300 / 300 200 / 200 Prostaphlin Inj 2 GM In NS Inj 100 / 100 300 / 300 200 / 200 100 ML @ 200 mls/hr IV.SIG Q4H BALBIR Rx#:[id number] Oral 742 / 742 Output: Urine 900 / 900 Other: # Voids 10 Date of Last Bowel Movement 11/25/17 # Bowel Movements 10 Narrative: GENERAL: NAD, AAOx3 SKIN: Warm and dry. multiple areas of cut wounds arms with scabs no active drainage appear healing CARDIO: Regular RESP: Breath sounds equal bilaterally. No accessory muscle use. ABD: +BS, soft, non-tender, nondistended. EXT: No cyanosis, or edema. Results Procedures completed during hospitalization: JODI 11/24/[address] Leyva Labs on day of discharge: Labs from last 24 hours 11/25/17 11/25/17 11/25/17 10:00 07:08 07:08 WBC 8.9 RBC 4.24 Hgb 10.8 L Hct 32.7 L MCV 77.0 L MCH 25.4 L MCHC 32.9 RDW 15.9 Plt Count 467 H D MPV 7.0 Neut % (Auto) 63.7 Lymph % (Auto) 27.9 [place] % (Auto) 6.8 Eos % (Auto) 1.3 Baso % (Auto) 0.3 Neut # (Auto) 5.7 Lymph # (Auto) 2.5 [place] # (Auto) 0.6 Eos # (Auto) 0.1 Baso # (Auto) 0.0 WBC Differential . Differential Comment Auto diff final Sodium 140 Potassium 3.7 Chloride 106 Carbon Dioxide 24.9 Anion Gap 9 BUN 5 L Creatinine 0.60 Estimated GFR Greater than 89 Random Glucose 80 Calcium 8.8 Magnesium 2.5 Stl C.difficile Tox PCR Pending St C. diff Tox Epid 027 Negative Preliminary micro results at discharge 11/22/17 14:03 Aerobic Blood Culture - Preliminary Blood - Peripheral No growth in 3 days Anaerobic Blood Culture - Preliminary No growth in 3 days 11/22/17 14:10 Aerobic Blood Culture - Preliminary Blood - Peripheral No growth in 3 days Anaerobic Blood Culture - Preliminary No growth in 3 days - Impressions ITS Impressions Sacrum/Coccyx MRI 11/19/17 00:00 CONCLUSION: Negative sacral MRI examination. Lumbar Spine MRI 11/19/17 15:07 CONCLUSION: Degenerative disc disease L5-S1. No evidence of disc protrusion or spinal canal stenosis. Bone Scan Nuclear Medicine 11/21/17 00:00 CONCLUSION: 1. Moderate uptake at the lumbosacral junction. 2. Discitis should be considered in the appropriate clinical situation Needle Biopsy/Aspiration X-Ray 11/22/17 00:00 CONCLUSION: 1. Uncomplicated needle biopsy of the L5-S1 disc space as above. Chest X-Ray 11/25/17 13:51 CONCLUSION: No acute cardiopulmonary disease. <Jair Villanueva - Last Filed: 11/25/17 18:36> Date of admission: 11/22/17 10:58 Primary care physician: No Primary Care Physician DS: Diagnosis - Discharge Diagnosis (1) Gram positive septicemia Status: Acute (2) Fever Status: Acute (3) Anxiety disorder Status: Acute (4) Deliberate self-cutting Status: Acute (5) Lumbar back pain Status: Acute DS: Summary - Time Spent with Patient Total time spent providing and/or coordinating discharge services: Exam Vital signs: Vital Signs 11/24/17 22:26 11/25/17 00:00 11/25/17 07:24 Temperature 98.3 F 98.1 F 98.4 F Pulse Rate 92 H 75 65 Respiratory Rate 18 18 18 Blood Pressure 99/57 L 126/67 137/82 Pulse Oximetry 94 L 96 96 11/25/17 12:00 11/25/17 16:00 Temperature 98.9 F 98.3 F Pulse Rate 93 H 90 Respiratory Rate 13 14 Blood Pressure 118/64 126/75 Pulse Oximetry 96 97 Intake & Output 11/24/17 11/25/17 11/25/17 18:59 06:59 18:59 Intake Total 842 / 842 300 / 300 200 / 200 Output Total 900 / 900 Balance 842 / 842 -600 / -600 200 / 200 Weight 101.6 kg Intake: IV 100 / 100 300 / 300 200 / 200 Prostaphlin Inj 2 GM In NS Inj 100 / 100 300 / 300 200 / 200 100 ML @ 200 mls/hr IV.SIG Q4H BALBIR Rx#:[id number] Oral 742 / 742 Output: Urine 900 / 900 Other: # Voids 10 4 Date of Last Bowel Movement 11/25/17 # Bowel Movements 10 1 Results Labs on day of discharge: Labs from last 24 hours 11/25/17 11/25/17 11/25/17 10:00 07:08 07:08 WBC 8.9 RBC 4.24 Hgb 10.8 L Hct 32.7 L MCV 77.0 L MCH 25.4 L MCHC 32.9 RDW 15.9 Plt Count 467 H D MPV 7.0 Neut % (Auto) 63.7 Lymph % (Auto) 27.9 [place] % (Auto) 6.8 Eos % (Auto) 1.3 Baso % (Auto) 0.3 Neut # (Auto) 5.7 Lymph # (Auto) 2.5 [place] # (Auto) 0.6 Eos # (Auto) 0.1 Baso # (Auto) 0.0 WBC Differential . Differential Comment Auto diff final Sodium 140 Potassium 3.7 Chloride 106 Carbon Dioxide 24.9 Anion Gap 9 BUN 5 L Creatinine 0.60 Estimated GFR Greater than 89 Random Glucose 80 Calcium 8.8 Magnesium 2.5 Stl C.difficile Tox PCR Positive H St C. diff Tox Epid 027 Negative Preliminary micro results at discharge 11/22/17 14:03 Aerobic Blood Culture - Preliminary Blood - Peripheral No growth in 3 days Anaerobic Blood Culture - Preliminary No growth in 3 days 11/22/17 14:10 Aerobic Blood Culture - Preliminary Blood - Peripheral No growth in 3 days Anaerobic Blood Culture - Preliminary No growth in 3 days - Impressions ITS Impressions Sacrum/Coccyx MRI 11/19/17 00:00 CONCLUSION: Negative sacral MRI examination. Lumbar Spine MRI 11/19/17 15:07 CONCLUSION: Degenerative disc disease L5-S1. No evidence of disc protrusion or spinal canal stenosis. Bone Scan Nuclear Medicine 11/21/17 00:00 CONCLUSION: 1. Moderate uptake at the lumbosacral junction. 2. Discitis should be considered in the appropriate clinical situation Needle Biopsy/Aspiration X-Ray 11/22/17 00:00 CONCLUSION: 1. Uncomplicated needle biopsy of the L5-S1 disc space as above. Chest X-Ray 11/25/17 13:51 CONCLUSION: No acute cardiopulmonary disease. Discharge Plan - Discharge Details Anticipated Discharge Date: 11/25/17 - Physicians Team Primary Care Provider: Primary Care Yesenia Quinteros Attending Provider: Jair Villanueva Other Providers: Umair Garcia MD ; Felicia Najera MD ; Mark Zelaya MD ; Portillo Leyva MD - Rxs /Orders / Referrals /Forms Prescriptions: New cefazolin 10 gram Recon Soln 2,000 mg IV Q8H RF: 0 cyclobenzaprine 10 mg Tablet 10 mg PO Q6H PRN (Reason: Muscle Spasm) Qty: 12 RF: 0 escitalopram oxalate 10 mg Tablet 5 mg PO DAILY 30 Days Qty: 15 RF: 0 hydrocodone-acetaminophen 5-325 mg Tablet 1 tab PO Q6H PRN (Reason: Pain) Qty: 12 RF: 0 lidocaine [Lidoderm] 5 % Adhesive Patch,Medicated 1 patch Transdermal DAILY Qty: 15 RF: 0 vancomycin 50 mg/mL Recon Soln 125 mg PO QID 14 Days Qty: 140 RF: 0 Discontinued diphenhydramine HCl [Benadryl] 25 mg Capsule 50 mg PO HS PRN (Reason: Sleep) ibuprofen [Advil Liqui-Gel] 200 mg Capsule 600 mg PO TID PRN (Reason: Back Pain) Referrals: Primary Care Yesenia Quinteros [Primary Care Provider] - See Instructions (follow up in 1 week) Felicia Najera MD [Physician] - See Instructions (follow up in 1 week)
[2017-11-25] MEDS ORDERED: ceFAZolin Inj 2,000 MG in Sodium Chlor 0.9% Inj 80 ML IV.SIG SCH (22:00)
[2017-11-26] MEDS ORDERED: ceFAZolin 2 GM Premix Inj 2 GM/50 ML PIGGYBACK IV.SIG SCH (06:00)
[2017-11-26] MEDS ORDERED: Heparin Central Flush 100 UNIT/ML 5 ML Vial IV.FLUSH SCH (09:00)
== END 2017-11-25 23:03 | disposition home health service (06) ==
LOC: PHEDDLT 07:48 → PH3 14:00 → INTOOBSV 14:00 → NEPFCDU 11-21 16:47 → N05 11-23 17:19
PROVIDERS: ADMIT Hospitalist; ATTEND Hospitalist